=== PATIENT | male | born 1940 | race Caucasian/White ===

== ENCOUNTER 2021-06-22 08:27 | Outpatient (CLI) | payer MEDICARE, SELFPAY ==
[2021-06-22 09:07] LABS: Basophils Percent Auto 0.4 % (0.2-1.2); Eosinophils Absolute Auto 0.4 K/mm3 (0-0.3); Eosinophils Percent Auto 7.3 % (0-4.4); Hemoglobin 12.2 g/dL (14.0-18.0); Immature Granulocyte Absolute 0.01 K/mm3 (0.00-0.031); Immature Granulocyte Percent A 0.2 % (0-0.5); Lymphocytes Absolute Auto 1.38 K/mm3 (0.9-3.2); Lymphocytes Percent Auto 27.9 % (18.3-44.2); Mean Corpuscular Hemoglobin 31.4 pg (26-34); Mean Corpuscular Volume 95.4 fl (80-100); Mean Platelet Volume 10.3 fl (7.4-10.4); Monocytes Absolute Auto 0.4 K/mm3 (0.1-0.6); Monocytes Percent Auto 7.9 % (2.6-8.5); Neutrophils Absolute Auto 2.8 K/mm3 (1.3-6.7); Neutrophils Percent Auto 56.3 % (45.5-73.1); Platelet Count Result 180 k/mm3 (150-375); Red Blood Count 3.88 M/mm3 (4.6-6.20); Red Cell Distribution Width 13.7 % (11.5-14.5)
[2021-06-22 09:16] LABS: Alanine Aminotransferase 18 U/L (6-50); Albumin Level 4.1 g/dL (3.5-5.1); Alkaline Phosphatase 49 U/L (38-126); Anion Gap 6 mmol/L (8-16); Aspartate Amino Transferase 32 U/L (17-59); Bilirubin,Total 0.8 mg/dL (0.2-1.3); Blood Urea Nitrogen 20 mg/dL (9-20); Calcium 8.8 mg/dL (8.4-10.2); Carbon Dioxide 26 mmol/L (22-30); Chloride 104 mmol/L (98-107); Cholesterol 119 mg/dL (0-200); Estimated Glomerular Filt Rate 58; Glucose 128 mg/dL (65-110); HDL Direct 40 mg/dL; Potassium 4.2 mmol/L (3.4-5.0); Sodium 136 mmol/L (137-145); Triglycerides 57 mg/dL (<150)
[2021-06-22 09:28] LABS: LDL Cholesterol Direct 53 mg/dL
[2021-06-22 09:55] LABS: Hemoglobin A1C 6.1 % (<5.7)
[2021-06-22 10:06] LABS: Creatinine Urine 131.1 mg/dL
[2021-06-22 10:17] LABS: Vitamin B12 > 1000.0 pg/mL (239-931)
[2021-06-22 10:48] LABS: Iron 71 ug/dL (49-181)
[2021-06-22 10:57] LABS: Percent Iron Saturation 24 % (20-50)
[2021-06-22 12:37] LABS: MALB Creatinine Ratio < 4.6 mg/g (0-30); Microalbumin Urine Random < 6.0 mg/L (0-16.7)
== END 2021-06-22 08:28 | disposition home or self-care (01) ==
LOC: ANHLAB 08:31
PROVIDERS: PCP Family Medicine; Visit Provider Family Medicine
DX: I10 Essential (primary) hypertension (principal); E11.9 Type 2 diabetes mellitus without complications; D50.9 Iron deficiency anemia, unspecified; E78.2 Mixed hyperlipidemia; Z13.220 Encounter for screening for lipoid disorders
CPT/HCPCS: 36415; 80048; 80061; 80076; 82043; 82607; 83036; 83540; 83550; 84443; 85025

== ENCOUNTER 2022-06-30 08:38 | Outpatient (CLI) | payer MEDICARE, SELFPAY ==
[2022-06-30 09:15] LABS: Hematocrit 38.9 % (42.0-52.0); Hemoglobin 13.1 g/dL (14.0-18.0); Mean Corpuscular HGB Conc 33.7 g/dl (32-36); Mean Corpuscular Hemoglobin 31.6 pg (26-34); Mean Corpuscular Volume 93.7 fl (80-100); Platelet Count Result 200 k/mm3 (150-375); Red Blood Count 4.15 M/mm3 (4.6-6.20); Red Cell Distribution Width 13.4 % (11.5-14.5); White Blood Count 8.5 K/mm3 (4.5-10.0)
[2022-06-30 09:36] LABS: Alanine Aminotransferase 24 U/L (6-50); Albumin Level 4.5 g/dL (3.5-5.1); Alkaline Phosphatase 55 U/L (38-126); Anion Gap 8 mmol/L (8-16); Aspartate Amino Transferase 33 U/L (17-59); Bilirubin,Total 1.7 mg/dL (0.2-1.3); Blood Urea Nitrogen 20 mg/dL (9-20); Calcium 9.1 mg/dL (8.4-10.2); Carbon Dioxide 29 mmol/L (22-30); Chloride 99 mmol/L (98-107); Cholesterol 127 mg/dL (0-200); Estimated Glomerular Filt Rate > 60; Glucose 129 mg/dL (65-110); HDL Direct 36 mg/dL; Potassium 4.5 mmol/L (3.4-5.0); Sodium 136 mmol/L (137-145); Triglycerides 76 mg/dL (<150)
[2022-06-30 09:47] LABS: LDL Cholesterol Direct 67 mg/dL
[2022-06-30 10:08] LABS: MALB Creatinine Ratio < 8.0 mg/g (0-30); Microalbumin Urine Random < 6.0 mg/L (0-16.7)
== END 2022-06-30 08:39 | disposition home or self-care (01) ==
LOC: ANHLAB 08:42
PROVIDERS: PCP Family Medicine; Visit Provider Nurse Practitioner Family
DX: D50.9 Iron deficiency anemia, unspecified (principal); E78.2 Mixed hyperlipidemia; I10 Essential (primary) hypertension; Z13.29 Encounter for screening for other suspected endocrine disorder; Z12.5 Encounter for screening for malignant neoplasm of prostate; E11.9 Type 2 diabetes mellitus without complications
CPT/HCPCS: 36415; 80053; 80061; 82043; 84153; 84443; 85027; G0103

== ENCOUNTER 2022-07-13 14:35 | Outpatient (CLI) | payer MEDICARE, SELFPAY ==
[2022-07-13 14:52] LABS: Hematocrit 38.6 % (42.0-52.0); Hemoglobin 12.6 g/dL (14.0-18.0); Mean Corpuscular HGB Conc 32.6 g/dl (32-36); Mean Corpuscular Hemoglobin 31.4 pg (26-34); Mean Corpuscular Volume 96.3 fl (80-100); Mean Platelet Volume 9.6 fl (7.4-10.4); Platelet Count Result 258 k/mm3 (150-375); Red Blood Count 4.01 M/mm3 (4.6-6.20); Red Cell Distribution Width 13.3 % (11.5-14.5); White Blood Count 8.3 K/mm3 (4.5-10.0)
[2022-07-13 15:05] LABS: Alanine Aminotransferase 24 U/L (6-50); Albumin Level 4.2 g/dL (3.5-5.1); Alkaline Phosphatase 47 U/L (38-126); Anion Gap 6 mmol/L (8-16); Aspartate Amino Transferase 30 U/L (17-59); Bilirubin,Total 0.5 mg/dL (0.2-1.3); Blood Urea Nitrogen 27 mg/dL (9-20); Calcium 9.2 mg/dL (8.4-10.2); Carbon Dioxide 30 mmol/L (22-30); Chloride 103 mmol/L (98-107); Estimated Glomerular Filt Rate > 60; Glucose 147 mg/dL (65-110); Potassium 5.1 mmol/L (3.4-5.0); Sodium 139 mmol/L (137-145)
== END 2022-07-13 14:36 | disposition home or self-care (01) ==
LOC: ANHLAB 14:37
PROVIDERS: PCP Family Medicine; Visit Provider Nurse Practitioner Family
DX: E87.1 Hypo-osmolality and hyponatremia (principal); R17 Unspecified jaundice; D64.9 Anemia, unspecified
CPT/HCPCS: 36415; 80053; 85027

== ENCOUNTER 2022-07-14 06:00 | Observation (INO) | payer MEDICARE, SELFPAY ==
[2022-07-14] VITALS (8 sets, daily range): BP systolic 148–162; BP diastolic 62–98; PULSE 67–87; RESP 14–18; TEMP 36.1–36.4; O2SAT 95–100; BMI 31.6
--- NOTE | ~2022-07-14 | CT_ITS ---
EXAMINATION: CT abdomen pelvis wo con DATE: 07/14/2022 09:02 INDICATION: One week of worsening right flank pain TECHNIQUE: Computed tomography (CT) of the abdomen and pelvis was performed without intravenous contr ast. Automated exposure control and iterative reconstruction technique were employed. The dose-length product was 1196.37 mGy-cm. COMPARISON: 03/02/2006 FINDINGS: Mild discoid atelectasis in the right middle and left lower lobes. Heart size is normal. Atherosclero tic coronary artery calcification and aortic valve calcification. No pericardial or pleural effusion. A few small calcified gallstones along the dependent wall of the gallbladder which is without eviden t wall thickening or pericholecystic inflammatory stranding to suggest acute cholecystitis. There are also a couple small calcified gallstones either within the cystic duct or common bile duct. There is suggestion of some associated intrahepatic biliary ductal dilation. Pancreas, spleen, bilateral adre nal glands and kidneys are normal. No urolithiasis or hydronephrosis. There are some nonspecific hazi ness to the fat at the root of the mesentery. There is bulky retroperitoneal lymphadenopathy which is below the level of the takeoff of the superior mesenteric artery forms a confluent mass measuring pr oximally 10.9 x 6.4 cm surrounding the aorta and inferior vena cava which is most concerning for lymp lucho with differential including other metastatic disease of unknown primary. There is an enlarged pe riportal lymph node measuring 3.4 x 1.9 cm. Additional suspicious mesenteric and gastrohepatic lympha denopathy along with haziness to the surrounding mesenteric fat. Postoperative change of prior umbili sharita hernia repair. Small fat-containing left inguinal hernia. Penile prosthesis with catheter extendi ng along the right inguinal canal to a reservoir in the anterior right pelvis. Bladder is normal. Pro statomegaly. There is moderate colonic diverticulosis with a sigmoid predominance. There is no adjac ent inflammatory change to suggest diverticulitis. Small bowel and appendix are normal. No pathologi dimitri enlarged lymphadenopathy in the pelvis. No free intraperitoneal gas or fluid. Lumbar levoscolio sis with severe spondylosis. IMPRESSION: 1. Abdominal lymphadenopathy including bulky retroperitoneal lymphadenopathy forming approximately 10 .9 x 6.4 similar confluent mass surrounding the abdominal aorta and inferior vena cava which is most concerning for lymphoma. Differential would include less likely other metastatic disease. Consider CT -guided percutaneous biopsy. 2. Cholelithiasis without evidence of acute cholecystitis. There are however a couple gallstones-abdo men the cystic duct or more likely in the common bile duct with suggestion of some mild intrahepatic biliary ductal dilation. Correlate with liver function tests and consider MRCP for further evaluation . 3. Diverticulosis. 4. Prostatomegaly. Reviewed, dictated and finalized at location B. IMPRESSION: 1. Abdominal lymphadenopathy including bulky retroperitoneal lymphadenopathy fo rming approximately 10.9 x 6.4 similar confluent mass surrounding the abdominal aorta and inferior vena cava which is most concerning for lymphoma. Differenti al would include less likely other metastatic disease. Consider CT-guided percu taneous biopsy. 2. Cholelithiasis without evidence of acute cholecystitis. There are however a couple gallstones-abdomen the cystic duct or more likely in the common bile meño t with suggestion of some mild intrahepatic biliary ductal dilation. Correlate with liver function tests and consider MRCP for further evaluation. 3. Diverticulosis. 4. Prostatomegaly.
--- NOTE | ~2022-07-14 | CT_ITS ---
EXAMINATION: CT biopsy abdomen percutaneous DATE: 07/14/2022 14:07 INDICATION: Abdominal lymphadenopathy. TECHNIQUE: The procedure including the risks, benefits, and alternatives was discussed with the patie nt. Risks discussed included bleeding and infection. The patient verbalized understanding of the risk s and agreed to proceed. The patient was placed prone. The skin overlying the retroperitoneum was pre pped and draped in usual sterile fashion. Anesthetic was administered with 1% lidocaine subcutaneous ly. A 16 gauge outer needle was advanced under CT guidance to the aortocaval lymphadenopathy. An 18 gauge core biopsy needle was then used to obtain 5 core biopsy specimens. The mA was adjusted accordi ng to patient size. Iterative reconstruction technique was employed. The dose-length product was 253. 99 mGy-cm. The needle was removed and the entry site was cleaned and dressed. There were no immediat e complications. FINDINGS: CT images demonstrate the outer needle tip adjacent to the enlarged aortocaval lymphadenopa thy.. IMPRESSION: 1. CT-guided core needle biopsy of aortocaval lymphadenopathy. Reviewed, dictated and finalized at location A.
--- NOTE | 2022-07-14 07:04 | PC.NURSE ---
Nurse report given to Mesfin PHAN
[2022-07-14] MEDS: ORPHENADRINE CITRATE 100 MG TABLET.ER PO (07:56)
[2022-07-14] MEDS: KETOROLAC 30 MG/ML VIAL (*BKC) 15 MG IM (07:59)
[2022-07-14 08:18] LABS: Basophils Percent Auto 0.2 % (0.2-1.2); Eosinophils Absolute Auto 0.3 K/mm3 (0-0.3); Eosinophils Percent Auto 3.1 % (0-4.4); Hematocrit 39.3 % (42.0-52.0); Hemoglobin 12.9 g/dL (14.0-18.0); Immature Granulocyte Absolute 0.03 K/mm3 (0.00-0.031); Immature Granulocyte Percent A 0.4 % (0-0.5); Lymphocytes Absolute Auto 1.66 K/mm3 (0.9-3.2); Lymphocytes Percent Auto 19.6 % (18.3-44.2); Mean Corpuscular HGB Conc 32.8 g/dl (32-36); Mean Corpuscular Hemoglobin 31.7 pg (26-34); Mean Corpuscular Volume 96.6 fl (80-100); Mean Platelet Volume 9.7 fl (7.4-10.4); Monocytes Absolute Auto 0.5 K/mm3 (0.1-0.6); Neutrophils Percent Auto 70.7 % (45.5-73.1); Platelet Count Result 243 k/mm3 (150-375); Red Blood Count 4.07 M/mm3 (4.6-6.20); Red Cell Distribution Width 13.4 % (11.5-14.5); White Blood Count 8.5 K/mm3 (4.5-10.0)
[2022-07-14 08:22] LABS: Appearance Urine Clear (Clear); Bilirubin Urine Negative (Negative); Blood Urine Negative (Negative); Color Urine Yellow (Yellow); Glucose Urine UA Negative (Negative); Ketones Urine Negative (Negative); Leukocyte Esterase Ur Negative LEU/UL (Negative); Nitrate Urine Negative (Negative); Protein Urine Negative (Negative); Specific Grav Ur 1.013 (1.001-1.035); Urobilinogen Urine 0.2 mg/dL (<2.0); pH Urine 5.5 (5.0-9.0)
[2022-07-14 08:25] LABS: Alanine Aminotransferase 23 U/L (6-50); Albumin Level 4.4 g/dL (3.5-5.1); Alkaline Phosphatase 47 U/L (38-126); Anion Gap 4 mmol/L (8-16); Aspartate Amino Transferase 28 U/L (17-59); Bilirubin,Total 0.5 mg/dL (0.2-1.3); Blood Urea Nitrogen 21 mg/dL (9-20); Calcium 9.2 mg/dL (8.4-10.2); Carbon Dioxide 32 mmol/L (22-30); Chloride 102 mmol/L (98-107); Estimated CRCL calculation 45 ml/min; Estimated Glomerular Filt Rate > 60; Glucose 126 mg/dL (65-110); Potassium 5.8 mmol/L (3.4-5.0); Sodium 138 mmol/L (137-145)
[2022-07-14 08:32] LABS: Add Urine Microscopic? NO
--- NOTE | 2022-07-14 10:30 | ED.GENADULT ---
HPI - General Adult General Chief complaint: Back Pain/Injury Stated complaint: R flank pain Time Seen by Provider: 07/14/22 07:10 History of Present Illness HPI narrative: Patient 82-year-old gentleman who presents the emergency department with chief complaint of right flank pain. Patient states that for couple days has noticed he had a discomfort feeling just lateral to his spine on the right side. The patient states that the pain is worse with movement and improved with rest patient reports no trauma patient reports no prior neoplastic history patient denies bowel or bladder symptoms Related Data Home Medications Medication Instructions Recorded Confirmed aspirin 81 mg capsule 81 mg PO DAILY 06/19/21 07/14/22 cholecalciferol (vitamin D3) 125 125 mcg PO DAILY 06/19/21 07/14/22 mcg (5,000 unit) capsule cyanocobalamin (vitamin B-12) 5,000 mcg PO DAILY 06/19/21 07/14/22 5,000 mcg capsule diphenhydramine HCl 25 mg capsule 25 mg PO QHS PRN Sleep Aid 06/19/21 07/14/22 (Allergy (diphenhydramine)) ferrous sulfate 325 mg (65 mg 325 mg PO DAILY 06/19/21 07/14/22 iron) tablet (Feosol) glucosamine sulfate 1,000 mg 1,000 mg PO DAILY 06/19/21 07/14/22 capsule melatonin 10 mg capsule 10 mg PO QHS 06/19/21 07/14/22 Allergies Allergy/AdvReac Type Severity Reaction Status Date / Time No Known Allergies Allergy Mild Verified 06/21/22 10:14 Review of Systems Review of Systems: A 10 system review of systems was completed on the patient and is negative except for what is stated in the HPI. Nursing and ancillary documentation was reviewed. [facility] Past Medical History Medical History Back spasm BMI 28.0-28.9,adult BMI 31.0-31.9,adult Coronary artery disease Diabetes History of myocardial infarction Hyperlipemia, mixed Hypertension Iron deficiency anemia Partial nontraumatic amputation of foot Rosacea Surgical History Surgical History History of back surgery History of coronary artery stent placement History of knee surgery History of penile implant Family History Family History Father Stomach ulcer Mother Acute myocardial infarction Heart disease Pacemaker Sibling , alzheimer's No problems noted. 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 HEAD: Normocephalic, atraumatic. EYES: PERRLA and EOMI. ENT: Nares clear, no rhinorrhea or epistaxis. Mucous membranes moist. NECK: Supple. CHEST: Clear to auscultation. No respiratory distress. HEART: Regular rate and rhythm. No murmur heard. Normal peripheral pulses. ABDOMEN: Soft, nontender, nondistended, normal active bowel sounds. EXTREMITIES: Normal range of motion. No edema. SKIN: Warm, dry, no rash. NEURO: No focal deficits. Alert and oriented x3. PSYCH: Normal mood and affect. Course Vital Signs Vital signs: Vital Signs Temperature 36.4 C 07/14/22 06:02 Pulse Rate 78
--- NOTE | 2022-07-14 11:20 | PC.NURSE ---
States he feels like he has been dealing with an infection in his sinuses. States recently while bending over, he will have yellow mucus run down his right nostril.
--- NOTE | 2022-07-14 12:29 | PC.NURSE ---
Lab called asking for a PT/INR for pt's biopsy. RN completes the order.
[2022-07-14 12:48] LABS: INR 1.1; Prothrombin Time 14.5 Seconds (11.1-14.7)
[2022-07-14] MEDS: SODIUM CHLORIDE 0.9% IV 1,000 ML 125 ML IV CONT (13:02)
--- NOTE | 2022-07-14 13:41 | PM.IMHP ---
H&P: HPI History of Present Illness Date/Time: 07/14/22 13:41 Chief Complaint: Low back pain Narrative: Date of service: 07/14/2022 Rex Kaplan is an 82-year-old male with a history of CAD, type 2 diabetes mellitus, hypertension, iron deficiency anemia who presented to the emergency department on 07/14/2022 with complaints of low back pain. Patient states that he has had some right-sided low back pain for about a week, worsened over the past couple of days and last night his pain was so severe that he could not get comfortable and was not able to sleep at all. States the pain does not radiate anywhere. Denies any pain in his buttocks or lower extremities. 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 Denies saddle anesthesia or loss of bowel or bladder control. The pain is worse when he changes positions, he is having trouble standing up. He is typically very active. On presentation to the ED, his vital signs were stable, he was afebrile, CBC unremarkable, potassium 5.8, improved to 5.0 on repeat, urinalysis without blood or other findings concerning for infection, and CT of the abdomen/pelvis showed abdominal lymphadenopathy including bulky retroperitoneal lymphadenopathy forming confluent mass surrounding abdominal aorta and IVC, most concerning for lymphoma, less likely metastatic disease, as well as cholelithiasis without evidence of acute cholecystitis. At the time of my evaluation, the patient states that he is doing well. His pain is unchanged, he is still able to ambulate independently. He denies any unintentional weight loss, in fact states that he is careful to keep himself within a healthy weight range. Denies abdominal pain, nausea, vomiting, fevers, chills, night sweats. Does complain of occasional nasal rhinorrhea and congestion. No shortness of breath. Review of Systems Review of Systems: All systems reviewed & are unremarkable except as noted in HPI and below PMFSH Past Medical History Medical History (Updated 07/14/22 @ 14:01 by Varsha Birch PA-C) Back spasm BMI 28.0-28.9,adult BMI 31.0-31.9,adult Coronary artery disease Diabetes History of myocardial infarction Hyperlipemia, mixed Hypertension Iron deficiency anemia Partial nontraumatic amputation of foot Rosacea Surgical History Surgical History (Updated 07/14/22 @ 14:01 by Varsha Birch PA-C) History of back surgery L5 History of coronary artery stent placement History of knee surgery History of penile implant Family History Family History Father Stomach ulcer Mother Acute myocardial infarction Heart disease Pacemaker Sibling , alzheimer's No problems noted. Sibling Alcoholism Tobacco abuse Social History Social History (Updated 07/14/22 @ 14:12 by Varsha Birch PA-C) Social History: Lives at home with his girlfriend. He is independent in his daily activities. His PCP is Dr. Solano. He is a full code. Smoking packs per day: 1 Smoking cigarettes per day: 20.0 Years smoked: 2 Smoking pack-years: 2.00 Smoking status: Former smoker (1 pack year) Second hand tobacco smoke exposure: No Alcohol intake: current Alcohol use details: 9 beers per week Substance use: never Substance use type: does not use Lack of Transportation: No Lack of Food: Never True Current Housing: I Have Housing Concerned About Future Housing: No Difficulty Paying Gas/Electric Bills: No Difficulty Paying for Meds: No Currently Unemployed: No Education: Trade/Vocational Certificate Difficulty w/ Childcare or Family Care: No Living arrangements: with family Occupation/Education: retired 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
--- NOTE | 2022-07-14 14:08 | PC.NURSE ---
Ct called to inform that pt will require to lay flat for 4 hours and to report any pain to provider.
--- NOTE | 2022-07-14 14:41 | ADMGEN ---
This patient, Rex Kaplan, was admitted to 3 Med Surg Room 302-01. Patient/family oriented to hospital policies and general routines including ID bracelet, bed and alarms, visiting hours, pain management, procedures, bathroom and other care routines, personal items, smoking policy, room service/diet, and visiting hours. Information on how to activate the Rapid Response Team has been discussed. Patient/Family are encouraged to report perceived risks to care and to ask questions if they do not understand what they are told or what they should do.
[2022-07-14 15:20] LABS: Lactate Dehydrogenase 184 U/L (120-246)
[2022-07-14 15:58] LABS: Glucose Point of Care 107 mg/dl (65-105)
[2022-07-14] MEDS: MELATONIN 5 MG TABLET 10 MG PO (21:12)
[2022-07-14] MEDS: diphenhydrAMINE HCl CAP 25 MG CAPSULE PO (21:13)
[2022-07-14 21:34] LABS: Glucose Point of Care 138 mg/dl (65-105)
[2022-07-15] MEDS: ACETAMINOPHEN 325 MG TABLET 650 MG PO (01:43)
[2022-07-15 06:00] VITALS: BP 151/64; PULSE 80; RESP 16; TEMP 36.1; O2SAT 97
[2022-07-15 06:39] LABS: Basophils Percent Auto 0.4 % (0.2-1.2); Eosinophils Absolute Auto 0.2 K/mm3 (0-0.3); Eosinophils Percent Auto 3.1 % (0-4.4); Hematocrit 35.7 % (42.0-52.0); Hemoglobin 11.9 g/dL (14.0-18.0); Immature Granulocyte Absolute 0.03 K/mm3 (0.00-0.031); Immature Granulocyte Percent A 0.4 % (0-0.5); Lymphocytes Absolute Auto 1.47 K/mm3 (0.9-3.2); Lymphocytes Percent Auto 19.1 % (18.3-44.2); Mean Corpuscular HGB Conc 33.3 g/dl (32-36); Mean Corpuscular Hemoglobin 31.6 pg (26-34); Mean Corpuscular Volume 94.9 fl (80-100); Mean Platelet Volume 10.1 fl (7.4-10.4); Monocytes Absolute Auto 0.5 K/mm3 (0.1-0.6); Monocytes Percent Auto 6.1 % (2.6-8.5); Neutrophils Absolute Auto 5.5 K/mm3 (1.3-6.7); Neutrophils Percent Auto 70.9 % (45.5-73.1); Platelet Count Result 223 k/mm3 (150-375); Red Blood Count 3.76 M/mm3 (4.6-6.20); Red Cell Distribution Width 13.5 % (11.5-14.5); White Blood Count 7.7 K/mm3 (4.5-10.0)
[2022-07-15 06:58] LABS: Alanine Aminotransferase 20 U/L (6-50); Albumin Level 3.8 g/dL (3.5-5.1); Alkaline Phosphatase 49 U/L (38-126); Anion Gap 5 mmol/L (8-16); Aspartate Amino Transferase 28 U/L (17-59); Bilirubin,Total 0.8 mg/dL (0.2-1.3); Blood Urea Nitrogen 20 mg/dL (9-20); Calcium 8.8 mg/dL (8.4-10.2); Carbon Dioxide 27 mmol/L (22-30); Chloride 103 mmol/L (98-107); Estimated CRCL calculation 52 ml/min; Estimated Glomerular Filt Rate > 60; Glucose 117 mg/dL (65-110); Potassium 4.6 mmol/L (3.4-5.0); Sodium 135 mmol/L (137-145)
[2022-07-15 07:41] LABS: Glucose Point of Care 112 mg/dl (65-105)
[2022-07-15] MEDS: CHOLECALCIFEROL 1,000 UNITS TABLET 5000 UNITS PO (08:22)
[2022-07-15] MEDS: CYANOCOBALAMIN 1,000 MCG TABLET 5000 MCG PO (08:22)
[2022-07-15] MEDS: ASPIRIN 81 MG CHEWABLE TABLET PO (08:22)
[2022-07-15] MEDS: FERROUS SULFATE 324 MG TABLET PO (08:22)
[2022-07-15] MEDS: DOXYCYCLINE HYCLATE 100 MG TABLET PO (08:23)
[2022-07-15] MEDS: ATORVASTATIN 40 MG TABLET PO (08:23)
[2022-07-15 08:25] VITALS: PULSE 59; O2SAT 97
--- NOTE | 2022-07-15 11:00 | P.DS_ITS ---
DS: Admitting Diagnosis Discharge Date 07/15/22 1100 Admitting Diagnosis Lower back pain DS: Discharge Diagnosis Discharge Diagnosis (1) Abdominal lymphadenopathy: Code(s): R59.0 - Localized enlarged lymph nodes Status: Acute Assessment and Plan: CT of abdomen/pelvis showed abdominal lymphadenopathy including bulky retroperitoneal lymphadenopathy forming approximately 10.9 x 6.4 similar consult mass surrounding the abdominal aorta and inferior vena cava which is most concerning for lymphoma with differential including metastatic disease. No personal or family history of any cancer * CT-guided core needle biopsy of aortocaval lymphadenopathy completed, pathology pending * Consult to Oncology for further recommendations * LDH 184 (2) Low back pain: Code(s): M54.50 - Low back pain, unspecified Status: Acute Assessment and Plan: Presented with right-sided lumbar back pain. No red flag back pain symptoms. * Likely secondary to above * No evidence of kidney stones, pyelonephritis, infection * Supportive care. Analgesics available as needed. Ice and heat as needed for discomfort (3) Cholelithiasis: Code(s): K80.20 - Calculus of gallbladder without cholecystitis without obstruction Status: Acute Assessment and Plan: CT of the abdomen/pelvis showed cholelithiasis without evidence of acute cholecystitis also with a couple gallstones possibly in the cystic duct or common bile duct * Patient has no abdominal pain, is tolerating his diet, no acute symptoms * LFTs and total bilirubin within normal limits * No need for further workup at this time. Consider outpatient follow-up with General surgery (4) Hyperkalemia: Code(s): E87.5 - Hyperkalemia Status: Acute Assessment and Plan: Potassium 5.8 on presentation, improved to 5.0 with repeat * Etiology not entirely clear. Renal function is within normal limits * Hold lisinopril * Low-potassium diet * Of note, patient had a potassium of 5.1 on 07/13. I am unclear when he had labs drawn on 07/13 as he has no visits for this date and denies having outpa tient lab work completed Potassium is 4.6 (5) Normocytic anemia: Code(s): D64.9 - Anemia, unspecified Status: Acute Assessment and Plan: Patient with mild anemia, appears consistent with baseline * Trend H&H * 11.9/35.7 (6) Diabetes: Qualifiers: Diabetes mellitus complication status: without complication Diabetes mellitus emt intermediate insulin use: without half-way use Diabetes mellitus type: type 2 Qualified Code(s): E11.9 - Type 2 diabetes mellitus without compli cations Code(s): E11.9 - Type 2 diabetes mellitus without complications Status: Acute Assessment and Plan: Last A1c 6.2. Blood sugars are stable at this time * Patient does not appear to be on home insulin or oral hypoglycemics * Begin Accu-Cheks, sliding scale insulin, and hypoglycemic protocol DS: Summary Hospital Course Hospital Course: Patient is an 82 year old with past medical history of CAD, type 2 diabetes, hypertension, anemia who presented the ED with complaints of lower back pain. Patient did have a CT of the abdomen and pelvis which did show lymphadenopathy and a retroperitoneal lipoma. Biopsy was performed yesterday. Patient states that he is feeling great it is swing dancing in the room. Currently his labs a
--- NOTE | 2022-07-15 11:00 | PM.DS ---
DS: Admitting Diagnosis Discharge Date 07/15/22 1100 Admitting Diagnosis Lower back pain DS: Discharge Diagnosis Discharge Diagnosis (1) Abdominal lymphadenopathy: Code(s): R59.0 - Localized enlarged lymph nodes Status: Acute Assessment and Plan: CT of abdomen/pelvis showed abdominal lymphadenopathy including bulky retroperitoneal lymphadenopathy forming approximately 10.9 x 6.4 similar consult mass surrounding the abdominal aorta and inferior vena cava which is most concerning for lymphoma with differential including metastatic disease. No personal or family history of any cancer CT-guided core needle biopsy of aortocaval lymphadenopathy completed, pathology pending Consult to Oncology for further recommendations LDH 184 (2) Low back pain: Code(s): M54.50 - Low back pain, unspecified Status: Acute Assessment and Plan: Presented with right-sided lumbar back pain. No red flag back pain symptoms. Likely secondary to above No evidence of kidney stones, pyelonephritis, infection Supportive care. Analgesics available as needed. Ice and heat as needed for discomfort (3) Cholelithiasis: Code(s): K80.20 - Calculus of gallbladder without cholecystitis without obstruction Status: Acute Assessment and Plan: CT of the abdomen/pelvis showed cholelithiasis without evidence of acute cholecystitis also with a couple gallstones possibly in the cystic duct or common bile duct Patient has no abdominal pain, is tolerating his diet, no acute symptoms LFTs and total bilirubin within normal limits No need for further workup at this time. Consider outpatient follow-up with General surgery (4) Hyperkalemia: Code(s): E87.5 - Hyperkalemia Status: Acute Assessment and Plan: Potassium 5.8 on presentation, improved to 5.0 with repeat Etiology not entirely clear. Renal function is within normal limits Hold lisinopril Low-potassium diet Of note, patient had a potassium of 5.1 on 07/13. I am unclear when he had labs drawn on 07/13 as he has no visits for this date and denies having outpatient lab work completed Potassium is 4.6 (5) Normocytic anemia: Code(s): D64.9 - Anemia, unspecified Status: Acute Assessment and Plan: Patient with mild anemia, appears consistent with baseline Trend H&H 11.9/35.7 (6) Diabetes: Qualifiers: Diabetes mellitus complication status: without complication Diabetes mellitus half-way insulin use: without buttermaker continuous churn use Diabetes mellitus type: type 2 Qualified Code(s): E11.9 - Type 2 diabetes mellitus without complications Code(s): E11.9 - Type 2 diabetes mellitus without complications Status: Acute Assessment and Plan: Last A1c 6.2. Blood sugars are stable at this time Patient does not appear to be on home insulin or oral hypoglycemics Begin Accu-Cheks, sliding scale insulin, and hypoglycemic protocol DS: Summary Hospital Course Hospital Course: Patient is an 82 year old with past medical history of CAD, type 2 diabetes, hypertension, anemia who presented the ED with complaints of lower back pain. Patient did have a CT of the abdomen and pelvis which did show lymphadenopathy and a retroperitoneal lipoma. Biopsy was performed yesterday. Patient states that he is feeling great it is swing dancing in the room. Currently his labs and vital signs are stable. Patient also states that he wishes to go home. He is eating okay the only complaint he had was a nasal drip which he stated started about this month. He also stated that he got a lot of yellow snot of his left nostril today and feels like he has a sinus infection. I did call Dr. Evangelista's office and talked to the and [employer] who agreed to follow up with him in the office along with following the pathology report and doing a consult our shot if indicated. We will give the raffy
[2022-07-15 11:09] LABS: Glucose Point of Care 159 mg/dl (65-105)
== END 2022-07-15 11:45 | disposition home or self-care (01) ==
LOC: ANHED 12:18 → ANH3MEDSUR 14:35
PROVIDERS: Physician Assistant; Admitting Provider Student in an Organized Health Care Education/Training Program; Emergency Provider Emergency Medicine; PCP Family Medicine; Visit Provider Internal Medicine
DX: R59.0 Localized enlarged lymph nodes (principal); M54.50 Low back pain, unspecified; K80.20 Calculus of gallbladder without cholecystitis without obstruction; E87.5 Hyperkalemia; D64.9 Anemia, unspecified; E11.9 Type 2 diabetes mellitus without complications; K57.90 Diverticulosis of intestine, part unspecified, without perforation or abscess without bleeding; N40.0 Benign prostatic hyperplasia without lower urinary tract symptoms; I25.10 Atherosclerotic heart disease of native coronary artery without angina pectoris; Z95.5 Presence of coronary angioplasty implant and graft; I25.2 Old myocardial infarction; E78.5 Hyperlipidemia, unspecified; I35.8 Other nonrheumatic aortic valve disorders; I10 Essential (primary) hypertension; J98.11 Atelectasis; Z89.439 Acquired absence of unspecified foot; F10.90 Alcohol use, unspecified, uncomplicated; Z87.891 Personal history of nicotine dependence; Z79.82 Long term (current) use of aspirin; Z79.899 Other long term (current) drug therapy
CPT/HCPCS: 36415; 49180; 74176; 77012; 80053; 81003; 82948; 83615; 84132; 85025; 85610; 88108; 88305; 88342; 96372; 99285; A9270; G0378; J1885; J7030; Q9967

== ENCOUNTER 2022-07-29 14:43 | Outpatient (CLI) | payer MEDICARE, SELFPAY ==
[2022-07-29 15:02] LABS: Basophils Percent Auto 0.3 % (0.2-1.2); Eosinophils Absolute Auto 0.3 K/mm3 (0-0.3); Eosinophils Percent Auto 3.7 % (0-4.4); Hematocrit 36.2 % (42.0-52.0); Hemoglobin 12.1 g/dL (14.0-18.0); Immature Granulocyte Absolute 0.02 K/mm3 (0.00-0.031); Immature Granulocyte Percent A 0.3 % (0-0.5); Lymphocytes Absolute Auto 1.49 K/mm3 (0.9-3.2); Lymphocytes Percent Auto 22.1 % (18.3-44.2); Mean Corpuscular HGB Conc 33.4 g/dl (32-36); Mean Corpuscular Hemoglobin 31.4 pg (26-34); Mean Platelet Volume 10.1 fl (7.4-10.4); Monocytes Absolute Auto 0.5 K/mm3 (0.1-0.6); Neutrophils Absolute Auto 4.5 K/mm3 (1.3-6.7); Neutrophils Percent Auto 66.6 % (45.5-73.1); Platelet Count Result 208 k/mm3 (150-375); Red Blood Count 3.85 M/mm3 (4.6-6.20); Red Cell Distribution Width 13.4 % (11.5-14.5); White Blood Count 6.7 K/mm3 (4.5-10.0)
[2022-07-29 21:49] LABS: Alanine Aminotransferase 22 U/L (6-50); Albumin Level 4.2 g/dL (3.5-5.1); Alkaline Phosphatase 45 U/L (38-126); Anion Gap 8 mmol/L (8-16); Aspartate Amino Transferase 30 U/L (17-59); Bilirubin,Total 0.6 mg/dL (0.2-1.3); Blood Urea Nitrogen 26 mg/dL (9-20); Calcium 9.1 mg/dL (8.4-10.2); Carbon Dioxide 26 mmol/L (22-30); Chloride 103 mmol/L (98-107); Estimated Glomerular Filt Rate > 60; Glucose 134 mg/dL (65-110); Lactate Dehydrogenase 193 U/L (120-246); Potassium 4.8 mmol/L (3.4-5.0); Sodium 137 mmol/L (137-145)
[2022-07-29 22:24] LABS: Prostate Specific Antigen 2.7 ng/mL (< OR = 4.0)
== END 2022-07-29 14:44 | disposition home or self-care (01) ==
PROVIDERS: PCP Family Medicine; Visit Provider Internal Medicine Hematology & Oncology
DX: C85.93 Non-Hodgkin lymphoma, unspecified, intra-abdominal lymph nodes (principal); Z12.5 Encounter for screening for malignant neoplasm of prostate
CPT/HCPCS: 36415; 80053; 83615; 84153; 85025; G0103

== ENCOUNTER 2022-08-02 12:02 | Outpatient (CLI) | payer MEDICARE, SELFPAY ==
[2022-08-02 12:26] LABS: Hematocrit 37.9 % (42.0-52.0); Hemoglobin 12.4 g/dL (14.0-18.0); Mean Corpuscular HGB Conc 32.7 g/dl (32-36); Mean Corpuscular Hemoglobin 30.9 pg (26-34); Mean Corpuscular Volume 94.5 fl (80-100); Mean Platelet Volume 10.2 fl (7.4-10.4); Platelet Count Result 212 k/mm3 (150-375); Red Blood Count 4.01 M/mm3 (4.6-6.20); Red Cell Distribution Width 13.5 % (11.5-14.5)
[2022-08-02 12:36] LABS: Anion Gap 8 mmol/L (8-16); Blood Urea Nitrogen 24 mg/dL (9-20); Carbon Dioxide 27 mmol/L (22-30); Chloride 102 mmol/L (98-107); Estimated Glomerular Filt Rate > 60; Glucose 113 mg/dL (65-110); Potassium 4.6 mmol/L (3.4-5.0); Sodium 137 mmol/L (137-145)
[2022-08-02 12:45] LABS: Iron 86 ug/dL (49-181)
== END 2022-08-02 12:03 | disposition home or self-care (01) ==
LOC: ANHLAB 12:03
PROVIDERS: PCP Family Medicine; Visit Provider Nurse Practitioner Family
DX: E87.5 Hyperkalemia (principal); D64.9 Anemia, unspecified
CPT/HCPCS: 36415; 80048; 83540; 85027

== ENCOUNTER 2022-08-10 09:02 | Outpatient (CLI) | payer MEDICARE, SELFPAY ==
--- NOTE | ~2022-08-10 | PE_ITS ---
EXAMINATION: PET skull to mid thigh DATE: 08/10/2022 11:34 INDICATION: Non-Hodgkin lymphoma TECHNIQUE: Blood glucose level was 133 mg/dL. 9.694 mCi of 18-fluorodeoxyglucose (18-FDG) was adminis tered i.v. Low dose computed tomography (CT) images were acquired from the base of the brain to the p roximal thighs for attenuation correction and anatomic localization. Positron emission tomography (PE T) images were acquired in the same distribution beginning 62 minutes after injection. The dose-lengt h product (DLP) was 546.76 mGy-cm. COMPARISON: 07/14/2022 FINDINGS: Head/neck: No abnormal FDG uptake is identified. There is complete opacification of the left maxillar y sinus. Chest: There are normal sized bilateral axillary lymph nodes which demonstrate abnormal FDG uptake. T he largest measures 7 mm in short axis in the left axilla with SUV max of 4.1. The lungs are free of focal airspace opacities. There is mild atelectasis. No pleural effusion or pneumothorax. Cardiomegal y is noted. There is no mediastinal or hilar lymphadenopathy. Abdomen/pelvis/proximal thighs: There is an approximately 10.0 x 6.5 cm ill-defined retroperitoneal s oft tissue attenuation mass surrounding the aorta with abnormal FDG uptake and SUV max of 10.7, consi stent with biopsy-proven lymphoma. There is an 11 mm left external iliac chain lymph node with abnorm al FDG uptake. Subcentimeter right external iliac chain lymph nodes demonstrate mild FDG uptake. Also noted are mildly enlarged lymph nodes of the small bowel mesentery with abnormal FDG uptake. A reser voir for a penile implant is present in the right pelvis. Physiologic FDG activity is present in the bowel and urinary tract. The liver, spleen, pancreas, gallbladder, and adrenal glands are unremarkabl e. The kidneys are normal. No free intraperitoneal gas or evidence of bowel obstruction. Musculoskeletal: No abnormal FDG uptake is identified. There is severe lumbar spondylosis. IMPRESSION: 1. Retroperitoneal, mesenteric, and pelvic lymphadenopathy and bilateral axillary lymph nodes with ab normal FDG uptake, consistent with biopsy-proven lymphoma. Reviewed, dictated and finalized at location L. IMPRESSION: 1. Retroperitoneal, mesenteric, and pelvic lymphadenopathy and bilateral axilla ry lymph nodes with abnormal FDG uptake, consistent with biopsy-proven lymphoma .
[2022-08-10 09:41] LABS: Glucose Point of Care 133 mg/dl (65-105)
== END 2022-08-10 09:03 | disposition home or self-care (01) ==
PROVIDERS: PCP Family Medicine; Visit Provider Internal Medicine Hematology & Oncology
DX: C85.93 Non-Hodgkin lymphoma, unspecified, intra-abdominal lymph nodes (principal)
CPT/HCPCS: 78815; A9552

== ENCOUNTER 2022-08-18 14:01 | Outpatient (CLI) | payer MEDICARE, SELFPAY | END 2022-08-18 14:02 | disposition home or self-care (01) | LOC: ANHLAB 14:02 | PROVIDERS: PCP Family Medicine; Visit Provider Internal Medicine Hematology & Oncology | DX: C85.93 Non-Hodgkin lymphoma, unspecified, intra-abdominal lymph nodes (principal) | CPT/HCPCS: 88184 ==

== ENCOUNTER 2022-10-04 10:19 | Outpatient (CLI) | payer MEDICARE, SELFPAY ==
[2022-10-04 10:43] LABS: Basophils Percent Auto 0.3 % (0.2-1.2); Eosinophils Absolute Auto 0.3 K/mm3 (0-0.3); Eosinophils Percent Auto 3.5 % (0-4.4); Hematocrit 39.9 % (42.0-52.0); Hemoglobin 13.2 g/dL (14.0-18.0); Immature Granulocyte Absolute 0.01 K/mm3 (0.00-0.031); Immature Granulocyte Percent A 0.1 % (0-0.5); Lymphocytes Absolute Auto 1.71 K/mm3 (0.9-3.2); Lymphocytes Percent Auto 22.4 % (18.3-44.2); Mean Corpuscular HGB Conc 33.1 g/dl (32-36); Mean Corpuscular Hemoglobin 31.3 pg (26-34); Mean Corpuscular Volume 94.5 fl (80-100); Mean Platelet Volume 10.1 fl (7.4-10.4); Monocytes Absolute Auto 0.5 K/mm3 (0.1-0.6); Monocytes Percent Auto 6.4 % (2.6-8.5); Neutrophils Absolute Auto 5.1 K/mm3 (1.3-6.7); Neutrophils Percent Auto 67.3 % (45.5-73.1); Platelet Count Result 243 k/mm3 (150-375); Red Blood Count 4.22 M/mm3 (4.6-6.20); Red Cell Distribution Width 13.2 % (11.5-14.5); White Blood Count 7.6 K/mm3 (4.5-10.0)
[2022-10-04 10:55] LABS: Anion Gap 5 mmol/L (8-16); Blood Urea Nitrogen 19 mg/dL (9-20); Calcium 9.8 mg/dL (8.4-10.2); Carbon Dioxide 27 mmol/L (22-30); Chloride 101 mmol/L (98-107); Estimated Glomerular Filt Rate > 60; Glucose 122 mg/dL (65-110); Potassium 4.5 mmol/L (3.4-5.0); Sodium 133 mmol/L (137-145)
== END 2022-10-04 10:20 | disposition home or self-care (01) ==
PROVIDERS: PCP Family Medicine; Visit Provider Physician Assistant Medical
DX: R10.13 Epigastric pain (principal); R41.82 Altered mental status, unspecified
CPT/HCPCS: 36415; 80048; 85025

== ENCOUNTER 2022-10-08 08:02 | Outpatient (CLI) | payer MEDICARE, SELFPAY ==
--- NOTE | ~2022-10-08 | CT_ITS ---
EXAMINATION: CT chest abdomen pelvis w con DATE: 10/08/2022 08:30 INDICATION: Non-Hodgkin's lymphoma TECHNIQUE: Computed tomography (CT) of the abdomen and pelvis was performed with 100 cc Omnipaque 350 intravenous contrast. The dose-length product was 954.45 mGy-cm. Automated exposure control and iter ative reconstruction technique were employed. COMPARISON: PET scan dated 08/10/2022. FINDINGS: Heart size is normal. No significant pleural or pericardial effusion. There is a penile pro sthetic device with a reservoir in the right pelvis. Heart size is normal. There is bilateral axillar y, retroperitoneal, bilateral axillary lymphadenopathy, consistent with known lymphoma. No significan t pleural or pericardial effusion. No endobronchial lesions. There is dependent atelectasis. There is a 2 mm right upper lobe nodule, likely benign. Calcified granuloma right lower lobe. No focal airspa ce consolidation. There are gallstones. The liver, spleen, adrenal glands and kidneys are unremarkable. There is a smal l 1 cm cyst of the pancreatic body. There is atherosclerosis of the aorta without aneurysm. There are severe degenerative changes of the hips. Severe thoracic and lumbar spondylosis. There is scoliosis. IMPRESSION: 1. Extensive axillary, retroperitoneal and mesenteric lymphadenopathy, consistent with known lymphoma . Reviewed, dictated and finalized at location B. IMPRESSION: 1. Extensive axillary, retroperitoneal and mesenteric lymphadenopathy, consiste nt with known lymphoma.
== END 2022-10-08 08:03 | disposition home or self-care (01) ==
PROVIDERS: PCP Family Medicine; Visit Provider Internal Medicine Hematology & Oncology
DX: C85.93 Non-Hodgkin lymphoma, unspecified, intra-abdominal lymph nodes (principal)
CPT/HCPCS: 71260; 74177; Q9967

== ENCOUNTER 2022-10-20 09:23 | Outpatient (CLI) | payer MEDICARE, SELFPAY ==
--- NOTE | ~2022-10-20 | US_ITS ---
EXAMINATION: US abdomen complete DATE: 10/20/2022 11:05 INDICATION: Epigastric pain TECHNIQUE: Multiple grayscale and Doppler ultrasound images of the abdomen were obtained. COMPARISON: 10/09/2019 FINDINGS: There is a 1.8 cm cyst of the body of the pancreas. The liver is normal with normal echogen icity and echotexture. No surface nodularity. Normal hepatopetal flow in the main portal vein. Stones are present in the gallbladder. No gallbladder wall thickening or pericholecystic fluid. The normal common bile duct measures 5 mm. There was no sonographic Rothman sign. The visualized portions of the aorta and inferior vena cava are normal. The spleen is normal in appearance and measures 10.1 cm. The right kidney measures 10.1 x 5.8 x 4.6 c m. The left kidney measures 10.6 x 5.0 x 4.6 cm. The kidneys demonstrate normal parenchymal echogenic ity. There is no hydronephrosis. IMPRESSION: 1. Cholelithiasis without evidence of cholecystitis. 2. 1.8 cm cyst of the pancreatic body. Follow-up pancreas protocol CT or MRI in two years is recommen ded. Reviewed, dictated and finalized at location F. IMPRESSION: 1. Cholelithiasis without evidence of cholecystitis. 2. 1.8 cm cyst of the pancreatic body. Follow-up pancreas protocol CT or MRI in two years is recommended.
== END 2022-10-20 09:24 | disposition home or self-care (01) ==
PROVIDERS: PCP Family Medicine; Visit Provider Physician Assistant Medical
DX: K80.20 Calculus of gallbladder without cholecystitis without obstruction (principal); K86.2 Cyst of pancreas; R41.82 Altered mental status, unspecified
CPT/HCPCS: 76700

== ENCOUNTER 2022-10-26 09:07 | Outpatient (CLI) | payer MEDICARE, SELFPAY ==
--- NOTE | ~2022-10-26 | US_ITS ---
EXAMINATION: US biopsy lymph node DATE: 10/26/2022 10:19 INDICATION: Non-Hodgkin's lymphoma of intra-abdominal lymph nodes. TECHNIQUE: The procedure including the risks, benefits, and alternatives was discussed with the patie nt. Risks discussed included bleeding and infection. The patient understood the risks and agreed to p roceed. The skin overlying the left axilla was prepped and draped in usual sterile fashion. Anesthet ic was administered with 1% lidocaine subcutaneously. An 18 gauge core biopsy needle was then used t o obtain multiple core biopsy specimens under continuous sonographic guidance. The entry site was taco aned and dressed. There were no immediate complications. FINDINGS: Ultrasound images demonstrate the needle in normal-sized left axillary lymph nodes that dem onstrated increased activity on PET/CT. IMPRESSION: 1. Ultrasound-guided core needle biopsy of left axillary lymph nodes. If this biopsy is not positive for malignancy, repeat CT-guided retroperitoneal biopsy would be recommended. Reviewed, dictated and finalized at location A. IMPRESSION: 1. Ultrasound-guided core needle biopsy of left axillary lymph nodes. If this b iopsy is not positive for malignancy, repeat CT-guided retroperitoneal biopsy w ould be recommended.
== END 2022-10-26 09:08 | disposition home or self-care (01) ==
PROVIDERS: PCP Family Medicine; Visit Provider Internal Medicine Hematology & Oncology
DX: C85.93 Non-Hodgkin lymphoma, unspecified, intra-abdominal lymph nodes (principal)
CPT/HCPCS: 38505; 76942; 88108; 88184; 88305; 88341; 88342

== ENCOUNTER → 2022-11-03 09:23 | Outpatient (CLI) | payer MEDICARE, SELFPAY ==
--- NOTE | ~2022-11-03 | CT_ITS ---
CT of the Abdomen and Pelvis: Indication: Pancreatic cyst Technique: 2.5 mm axial scans were obtained through the abdomen and pelvis prior to and following in travenous administration of 100 cc of Omnipaque 350. Dose reduction technique was used on this scan b y utilizing automated exposure control and iterative reconstruction technique. The dose-length produc t (DLP) was 2103.53 mGy-cm. COMPARISON: 10/08/2022 Findings: Scans through the lung bases are unremarkable. The liver, spleen, adrenals and kidneys are within normal limits. Tiny gallstones are present. 9 mm h ypodensity the pancreatic neck is similar to prior exam, without definite enhancement. There are athe rosclerotic calcifications of the aorta. There is extensive, confluent retroperitoneal lymphadenopat hy encasing the aorta. There are additional enlarged central mesenteric lymph nodes, similar to prior exam.. No bowel obstruction or bowel wall thickening. There is no evidence to suggest acute appendicitis. Images through the pelvis were performed. Prostate gland is markedly enlarged. Urinary bladder unrema rkable. Penile implant and reservoir present. Impression: Retroperitoneal and central mesenteric lymphadenopathy, similar to prior exam, consistent with lympho ma. 9 mm hypodensity at the pancreatic neck is similar to prior exam, without definite enhancement. Cholelithiasis. Reviewed, dictated and finalized at [facility]. Impression: Retroperitoneal and central mesenteric lymphadenopathy, similar to prior exam, consistent with lymphoma. 9 mm hypodensity at the pancreatic neck is similar to prior exam, without defin ite enhancement. Cholelithiasis.
[2022-11-03 09:41] LABS: Estimated Glomerular Filt Rate 53
== END ==
PROVIDERS: PCP Physician Assistant Medical; Visit Provider Physician Assistant Medical
DX: K86.2 Cyst of pancreas (principal); R59.0 Localized enlarged lymph nodes; K80.20 Calculus of gallbladder without cholecystitis without obstruction
CPT/HCPCS: 74178; Q9967

== ENCOUNTER 2022-11-16 11:01 | Outpatient (CLI) | payer MEDICARE, SELFPAY ==
[2022-11-16 11:14] LABS: Basophils Percent Auto 0.3 % (0.2-1.2); Eosinophils Absolute Auto 0.3 K/mm3 (0-0.3); Eosinophils Percent Auto 4.7 % (0-4.4); Hematocrit 38.4 % (42.0-52.0); Hemoglobin 12.7 g/dL (14.0-18.0); Immature Granulocyte Absolute 0.02 K/mm3 (0.00-0.031); Immature Granulocyte Percent A 0.3 % (0-0.5); Lymphocytes Absolute Auto 2.27 K/mm3 (0.9-3.2); Lymphocytes Percent Auto 34.1 % (18.3-44.2); Mean Corpuscular HGB Conc 33.1 g/dl (32-36); Mean Corpuscular Hemoglobin 31.3 pg (26-34); Mean Corpuscular Volume 94.6 fl (80-100); Mean Platelet Volume 9.6 fl (7.4-10.4); Monocytes Absolute Auto 0.5 K/mm3 (0.1-0.6); Neutrophils Absolute Auto 3.5 K/mm3 (1.3-6.7); Neutrophils Percent Auto 52.6 % (45.5-73.1); Platelet Count Result 200 k/mm3 (150-375); Red Blood Count 4.06 M/mm3 (4.6-6.20); Red Cell Distribution Width 13.4 % (11.5-14.5); White Blood Count 6.7 K/mm3 (4.5-10.0)
[2022-11-16 11:17] LABS: Blood Urea Nitrogen 27 mg/dL (8-26); Carbon Dioxide 29 mmol/L (22-30); Chloride 98 mmol/L (98-109); Estimated Glomerular Filt Rate 53; Glucose 156 mg/dL (70-105); Ionized Calcium (POC) 1.27 mmol/L (1.11-1.31); Potassium 4.8 mmol/L (3.5-4.9); Sodium 137 mmol/L (138-146)
[2022-11-16 11:58] LABS: Alanine Aminotransferase 22 U/L (6-50); Albumin Level 4.2 g/dL (3.5-5.1); Alkaline Phosphatase 51 U/L (38-126); Anion Gap 7 mmol/L (8-16); Aspartate Amino Transferase 32 U/L (17-59); Bilirubin,Total 0.8 mg/dL (0.2-1.3); Blood Urea Nitrogen 27 mg/dL (9-20); Calcium 9.9 mg/dL (8.4-10.2); Carbon Dioxide 30 mmol/L (22-30); Chloride 98 mmol/L (98-107); Estimated Glomerular Filt Rate 58; Glucose 150 mg/dL (65-110); Lactate Dehydrogenase 197 U/L (120-246); Potassium 4.7 mmol/L (3.4-5.0); Sodium 135 mmol/L (137-145)
== END 2022-11-16 11:02 | disposition home or self-care (01) ==
LOC: ANHLAB 11:04
PROVIDERS: PCP Physician Assistant Medical; Visit Provider Internal Medicine Hematology & Oncology
DX: C85.93 Non-Hodgkin lymphoma, unspecified, intra-abdominal lymph nodes (principal)
CPT/HCPCS: 36415; 80047; 80053; 83615; 85025

== ENCOUNTER 2022-11-29 00:37 | Day surgery (SDC) | payer MEDICARE, SELFPAY ==
[2022-11-26 09:08] VITALS: BMI 28.9
--- NOTE | 2022-11-26 09:32 | PC.NURSE ---
Report to the Outpatient Waiting Room, entrance under the green pavilion located off [facility], at time __1130 on date __11/29/22 . Planned Procedure Time: __1:3- PM . Time changes happen often and if your time is changed the preop area will call you the afternoon before. - You and your visitor will be asked to self-screen and do not enter if you have any COVID symptoms. - A mask is optional within the hospital at this time. Patients may have clear liquids (water, carbonated beverages, clear teas, apple juice) until 3 hours prior to surgery (1030 AM) with a maximum of 20 ounces. - No food from midnight until time of surgery - Infants may have breast milk until 4 hours before surgery, infant formula 6 hours prior to surgery. - Children will be allowed to drink immediately following surgery. If applicable, please bring a bottle or sippy cup to assist with drinking. Juice, water, soda, and popsicles are readily available. For infants on formula, please bring formula the day of surgery. Pacifiers are allowed. Take the following medications with a SIP of water the morning of surgery: NONE DO NOT STOP ANY OF YOUR OTHER PRESCRIPTION MEDICATIONS PRIOR TO SURGERY ?EXCEPT THE FOLLOWING Medications to discontinue per physician MELOXICAM PER DR HURT - CALL FOR INSTRUCTIONS__ Date to take last dose Please no make-up, nail bahraini, hairspray, perfume, deodorant, or body powder the day of surgery. No jewelry (including any body piercings) or valuables the day of surgery, leave them at home. Please take a shower or bath the night before, or the morning of, surgery with an antibacterial soap. Wear comfortable, loose fitting clothing. Children are encouraged to wear pajamas. - Jewelry must be removed prior to entering the operating room. Rings and piercings that are not removed may be cut off. - The hospital will not accept responsibility for valuables. - Please leave all valuables, including medications, at home the day of surgery. If you are going home after surgery, a licensed diesel truck driver must drive you home. - NO public transportation without another adult if you receive anesthesia. - We recommend that an adult stay with you for 24 hours following discharge. - We also recommend that you do not drive, make important decision, drink alcoholic beverages, or take any drugs that were not prescribed by your health care provider for at least 24 hours after your discharge time. For Pediatric surgeries, we recommend two adults accompany the child home. Follow any additional instructions given to you from your surgeon. If you or anyone in your household have experienced Covid symptoms in the past week, please notify your surgeon or the nurse liaison at the phone number below for possible testing. Telephone instructions given to ___PT and asked if any additional questions and then verbalized understanding. Patient advised to call surgeon office or pre surgery nurse liaison [phone] if any additional questions.
--- NOTE | ~2022-11-29 | XR_ITS ---
EXAMINATION: XR fl guide central line place DATE: 11/29/2022 12:04 INDICATION: Port catheter insertion TECHNIQUE: Single frontal fluoroscopic image of the central chest was obtained during procedure perfo rmed by Dr. Robledo. Radiologist was not present for the imaging or procedure. The amount of fluoroscopy time used during this procedure was 0.5 minutes. COMPARISON: None. FINDINGS/IMPRESSION: Distal tip of a right internal jugular central venous catheter projects over the caudal superior vena cava. Correlate with procedure note for further detail. Reviewed, dictated and finalized at location A.
--- NOTE | ~2022-11-29 | XR_ITS ---
XR chest port-a-cath/central DATE: 11/29/2022 12:04 INDICATION: Port-A-Cath placement TECHNIQUE: Portable upright AP chest on 11/29/2022 at 1159 hours COMPARISON: None FINDINGS: Right internal jugular Port-A-Cath catheter is noted with distal tip overlying superior anahy a cava. There is approximately 2.6 cm overlapping of the catheter in the lower cervical area; kinking of the tube cannot be confirmed or excluded in this single anteroposterior plane. Lateral chest May be helpful for this purpose if the catheter is not properly functional. Heart size appears within normal range. Is aortic calcification and mild unfolding. No hilar or media stinal enlargement is detected. No pulmonary infiltrate or consolidation, pleural effusion or pulmonary vascular congestion or pneumo thorax is detected. Degenerative change of the thoracic spine. IMPRESSION: Right Port-A-Cath catheter tip overlies superior vena cava No active cardiopulmonary disease Aortic atherosclerosis Reviewed, dictated and finalized at Location A. Reviewed, dictated and finalized at location B.
[2022-11-29 09:40] LABS: Glucose Point of Care 131 mg/dl (65-105)
[2022-11-29 09:57] VITALS: BP 142/84; PULSE 57; RESP 20; TEMP 36.4; O2SAT 100; BMI 28.6
--- NOTE | 2022-11-29 09:58 | WPDANESEPPF ---
Anes - Initial Pre Proc Eval Procedure: Operation Date: 11/29/22 10:30 Proposed Procedures p Insertion Manoj Cath - Jules Robledo MD Date/Time: 11/29/22 09:58 Surgeon: Jules Robledo MD Pre Op Diagnosis: nonhodgkins lymphoma of intra abd lymph node Patient Data Age: 82 Gender: M Height: 1.73 m Weight: 86.36 kg Allergies Allergy/AdvReac Type Severity Reaction Status Date / Time No Known Allergies Allergy Mild Verified 11/29/22 09:49 Home Medications Medication Instructions Recorded Confirmed Type aspirin 81 mg capsule 81 mg PO DAILY 06/19/21 11/29/22 History cholecalciferol (vitamin D3) 125 125 mcg PO DAILY 06/19/21 11/29/22 History mcg (5,000 unit) capsule diphenhydramine HCl 25 mg capsule 25 mg PO HS PRN Sleep Aid 06/19/21 11/29/22 History (Allergy (diphenhydramine)) ferrous sulfate 325 mg (65 mg 325 mg PO DAILY 06/19/21 11/29/22 History iron) tablet (Feosol) melatonin 10 mg capsule 10 mg PO HS 06/19/21 11/29/22 History doxycycline hyclate 100 mg tablet 100 mg PO DAILY #30 tabs 06/29/22 11/29/22 Rx lancets 32 gauge 09/23/22 11/29/22 History metformin 500 mg tablet 500 mg PO BID #60 tabs 09/23/22 11/29/22 Rx blood sugar diagnostic (OneTouch #50 ea 09/27/22 11/29/22 Rx Ultra Test strips) atorvastatin 80 mg tablet 80 mg PO DAILY #90 tabs 10/22/22 11/29/22 Rx lisinopril 5 mg tablet 5 mg PO DAILY #90 tabs 10/22/22 11/29/22 Rx tramadol 50 mg tablet 50 mg Q8H PRN Pain 11/26/22 11/29/22 History meloxicam 15 mg tablet 15 mg PO DAILY #90 tabs 11/28/22 11/29/22 Rx Laboratory Tests 11/29/22 11/29/22 09:32 09:37 PT Pending INR Pending APTT Pending POC Capillary Glucose 131 H mg/dl (65-105) Patient hx anesthesia problems: none Family hx anesthesia problems: none Results Review: All pre-operative results and documents have been reviewed as part of the pre-operative evaluation. [facility] Past Medical History Medical History Back spasm BMI 28.0-28.9,adult BMI 31.0-31.9,adult Coronary artery disease Diabetes Fatigue History of myocardial infarction Hyperlipemia, mixed Hypertension Iron deficiency anemia Non-Hodgkin lymphoma Partial nontraumatic amputation of foot Rosacea Surgical History Surgical History History of back surgery L5 History of coronary artery stent placement History of knee surgery History of penile implant Family History Family History Father Stomach ulcer Mother Acute myocardial infarction Heart disease Pacemaker Sibling , alzheimer's No problems noted. Sibling Alcoholism Tobacco abuse Social History Social History Social History: Lives at home with his girlfriend. He is independent in his daily activities. His PCP is Dr. Solano. He is a full code. Smoking packs per day: 1 Smoking cigarettes per day: 20.0 Years smoked: 3 Smoking pack-years: 3.00 Smoking status: Former smoker Tobacco type: cigarettes Second hand tobacco smoke exposure: No Smoking end date: 02/14/58 Alcohol intake: current Drinks per week: 3 Alcohol use details: 6-9 BEERS/WEEK Substance use: never Substance use type: does not use Lack of Transportation: No Lack of Food: Never True Current Housing: I Have Housing Concerned About Future Housing: No Difficulty Paying Gas/Electric Bills: No Difficulty Paying for Meds: No Currently Unemployed: No Education: Trade/Vocational Certificate Difficulty w/ Childcare or Family Care: No Living arrangements: alone Occupation/Education: retired 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
[2022-11-29 10:12] LABS: Partial Thromboplastin Time 28.4 SECONDS (22.3-36.8)
[2022-11-29] MEDS: LACTATED RINGERS 1,000 ML 30 ML IV CONT (10:17)
[2022-11-29] MEDS: LIDO 1%/EPINEPHRINE 1:100,000 50 ML VIAL 20 ML INFILTRATE (10:18)
[2022-11-29] MEDS: HEPARIN SODIUM 5,000 UNITS/ML VIAL 5000 UNITS IRRIGATION (10:19)
[2022-11-29] MEDS: HEPARIN SODIUM 1,000 UNITS/ML VIAL 1000 UNITS IV PUSH (10:19)
--- NOTE | 2022-11-29 10:44 | PM.IMHP ---
H&P: HPI History of Present Illness Date/Time: 11/29/22 10:44 Chief Complaint: Lymphoma, need for portacatheter placement Narrative: Pt recently diagonosed with lymphoma. No hx of prior lymphoma and no prior chemo tx. No hx of central lines in IJ or SC veins. Pt overall very healthy. Review of Systems Review of Systems: The remainder of the review of systems to include constitutional, HEENT, cardiovascular, respiratory, GI, , integumentary, musculoskeletal, endocrine, immunologic, hematologic, psychiatric, and neurologic are all negative except for which is mentioned above in the HPI. [facility] Past Medical History Medical History Back spasm BMI 28.0-28.9,adult BMI 31.0-31.9,adult Coronary artery disease Diabetes Fatigue History of myocardial infarction Hyperlipemia, mixed Hypertension Iron deficiency anemia Non-Hodgkin lymphoma Partial nontraumatic amputation of foot Rosacea Surgical History Surgical History History of back surgery L5 History of coronary artery stent placement History of knee surgery History of penile implant Family History Family History Father Stomach ulcer Mother Acute myocardial infarction Heart disease Pacemaker Sibling , alzheimer's No problems noted. Sibling Alcoholism Tobacco abuse Social History Social History Social History: Lives at home with his girlfriend. He is independent in his daily activities. His PCP is Dr. Solano. He is a full code. Smoking packs per day: 1 Smoking cigarettes per day: 20.0 Years smoked: 3 Smoking pack-years: 3.00 Smoking status: Former smoker Tobacco type: cigarettes Second hand tobacco smoke exposure: No Smoking end date: 02/14/58 Alcohol intake: current Drinks per week: 3 Alcohol use details: 6-9 BEERS/WEEK Substance use: never Substance use type: does not use Lack of Transportation: No Lack of Food: Never True Current Housing: I Have Housing Concerned About Future Housing: No Difficulty Paying Gas/Electric Bills: No Difficulty Paying for Meds: No Currently Unemployed: No Education: Trade/Vocational Certificate Difficulty w/ Childcare or Family Care: No Living arrangements: alone Occupation/Education: retired 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 Gender identity (if verbalized by the patient): Male Spiritual care concerns: No Meds Home Medications and Allergies Home Medications Medication Instructions Recorded Confirmed Type aspirin 81 mg capsule 81 mg PO DAILY 06/19/21 11/29/22 History cholecalciferol (vitamin D3) 125 125 mcg PO DAILY 06/19/21 11/29/22 History mcg (5,000 unit) capsule diphenhydramine HCl 25 mg capsule 25 mg PO HS PRN Sleep Aid 06/19/21 11/29/22 History (Allergy (diphenhydramine)) ferrous sulfate 325 mg (65 mg 325 mg PO DAILY 06/19/21 11/29/22 History iron) tablet (Feosol) melatonin 10 mg capsule 10 mg PO HS 06/19/21 11/29/22 History doxycycline hyclate 100 mg tablet 100 mg PO DAILY #30 tabs 06/29/22 11/29/22 Rx lancets 32 gauge 09/23/22 11/29/22 History metformin 500 mg tablet 500 mg PO BID #60 tabs 09/23/22 11/29/22 Rx blood sugar diagnostic (OneTouch #50 ea 09/27/22 11/29/22 Rx Ultra Test strips) atorvastatin 80 mg tablet 80 mg PO DAILY #90 tabs 10/22/22 11/29/22 Rx lisinopril 5 mg tablet 5 mg PO DAILY #90 tabs 10/22/22 11/29/22 Rx tramadol 50 mg tablet 50 mg Q8H PRN Pain 11/26/22 11/29/22 History meloxicam 15 mg tablet 15 mg PO DAILY #90 tabs 11/28/22 11/29/22 Rx Allergies Allergy/AdvReac Type Severity Reaction Status Date / Time No Known Allergies Allergy Mild Verified 11/29/22 09:49 Vital Signs Vital Signs - 24 hr 11/29/22 09:57 Temperature 36.4
--- NOTE | 2022-11-29 10:49 | WPDHPUPDATE1 ---
History and Physical Update Update Date/Time: 11/29/22 10:49 History and Physical has been reviewed, including an updated exam of the patient. There are NO changes in the patient's condition. Risks, benefits, and alternatives have been discussed and questions answered. Patient agrees to proceed with procedure.
[2022-11-29] MEDS: ceFAZolin 2 GM/D5W 50 ML 2 GM/50 ML BAG IVPB (10:55)
--- NOTE | 2022-11-29 11:49 | W.PM.PROC2 ---
Procedure Note - Detailed Date of Procedure 11/29/22 Pre-op Diagnosis nonhodgkins lymphoma of intra abd lymph node Post-op Diagnosis Same Procedure Performed Placement of right internal jugular vein single-lumen port a catheter with intraoperative fluoroscopy. Surgeon Jules Robledo MD Guide Dog Mobility Instructor Ciera Graves BARKEEPER Anesthesia General Indications Patient is a overall fairly healthy 82-year-old gentleman who unfortunately has recently developed abdominal lymphoma. He is undergoing chemotherapy treatments and presents now for placement myla catheter to begin chemotherapy treatments. Findings None significant Description of Procedure After informed consent was obtained patient brought to the operating room and placed supine position and then general LMA anesthesia was administered. The bilateral upper anterior neck and chest was then prepped and draped in usual sterile fashion. A time-out was then performed correctly identifying the patient as well as procedure to be performed. He was given perioperative IV antibiotics. Then with the patient head-down Trendelenburg position and then anesthetized the area between the 2 heads of the right sternocleidomastoid muscle with some 1% lidocaine mixed with 0.5% Marcaine. I then used a long 18gauge spinal needle to percutaneously cannulate the right internal jugular vein on the 1st pass without any difficulty. There was prompt return of dark venous appearing blood. A guidewire was advanced through the needle into the right internal jugular vein and subsequently down into the superior vena cava. Intraoperative fluoroscopy was used to identify the tip of the guidewire and confirmed was in a proper position. I then utilized the same local anesthetic mixture and anesthetized just below the medial 3rd of the right clavicle in the anterior chest wall. A transverse incision was then made in this area with a scalpel and dissection was carried down through the subcu tissue electrocautery. The subcutaneous port pocket was created with electrocautery blunt finger dissection just below the incision. I then tunneled a 9.6 [place] single-lumen catheter from the chest incision to the neck incision. A dilator breakaway sheath was then advanced over the guidewire and the guidewire and dilator were removed leaving the sheath in place. The catheter was then advanced through the sheath into the right internal jugular vein and subsequently down into the right atrium of the heart. The sheath was then torn away. Intraoperative fluoroscopy was then used to visualize the tip of the catheter and then I pulled back on the catheter until the tip was located at the atriocaval junction. The catheter was then cut to the appropriate length the skin level and attached to the Smart Port. The port was then secured in the subcutaneous port pocket on 3 sides with a 3-0 Prolene suture. The pocket was then irrigated sterile saline solution hemostasis was good. I then closed the right upper anterior chest wall incision utilizing interrupted 3-0 Vicryl sutures in the subcutaneous tissues and the skin edges were approximated utilizing a running subcuticular 4-0 Monocryl suture. The small right anterior lateral neck incision was also closed with a 4-0 Monocryl suture. I then accessed the port percutaneously and it aspirated blood easily and was flushed with units of IV heparin. The incisions were then cleaned the skin glue was applied. The patient tolerated the procedure well no complications. All sponges, needles, and instrument counts were correct at the end procedure. EBL was _10__cc. The patient was awakened and taken to recovery in stable and satisfactory condition. Implants Smart Port attached to 9.6 [place] single-lumen catheter right internal jugular vein. Estimated Blood Loss 10 Drains No Packing No Pathology None sent Complications No immediate complications Condition Stable Disposition PACU [facility] Billing Surgery - Charge Forward: Brett
[2022-11-29 11:50] VITALS: BP 132/69; PULSE 62; RESP 15; O2SAT 99
[2022-11-29 12:00] LABS: Glucose Point of Care 147 mg/dl (65-105)
[2022-11-29 12:15] VITALS: BP 149/56; PULSE 79; RESP 20
[2022-11-29 12:45] VITALS: BP 140/55; PULSE 80; RESP 20
[2022-11-29 13:00] VITALS: BP 146/60; PULSE 80; RESP 20
== END 2022-11-29 13:10 | disposition home or self-care (01) ==
PROVIDERS: PCP Family Medicine; Visit Provider Surgery
PROC: (CPT 36561; principal; 2022-11-29 10:30)
DX: C82.90 Follicular lymphoma, unspecified, unspecified site (principal); I70.0 Atherosclerosis of aorta; I25.10 Atherosclerotic heart disease of native coronary artery without angina pectoris; E11.9 Type 2 diabetes mellitus without complications; E78.2 Mixed hyperlipidemia; I10 Essential (primary) hypertension; D50.9 Iron deficiency anemia, unspecified; Z95.5 Presence of coronary angioplasty implant and graft; Z87.891 Personal history of nicotine dependence; Z79.82 Long term (current) use of aspirin; Z79.84 Long term (current) use of oral hypoglycemic drugs; Z79.891 Long term (current) use of opiate analgesic
CPT/HCPCS: 36561; 36415; 77001; 82948; 85610; 85730; C1788; J0690; J1644; J2405; J2704; J3010; J7030; J7120

== ENCOUNTER 2023-02-15 10:06 | Observation (INO) | payer MEDICARE, SELFPAY ==
--- NOTE | ~2023-02-15 | XR_ITS ---
EXAMINATION: XR foot RT min 3V DATE: 02/15/2023 11:35 INDICATION: Weeping sores at the distal right foot TECHNIQUE: Dorsoplantar, two oblique and lateral views of the right foot were obtained. COMPARISON: None. FINDINGS: Postoperative change of a right forefoot amputation at the level of the tarsal metatarsal joints. The re is an irregular but some of the corticated osteotomy margin along portions of the medial and mid c uneiforms insertion with a few likely small residual bone fragments along the distal margin of the la teral cuneiform and cuboid. No cortical erosion or appreciable osteolysis to suggest osteomyelitis. N o evident soft tissue gas. Normal bone alignment at the right ankle and hindfoot. No fracture. Small plantar calcaneal spur. Mild osteoarthritis at the tibiotalar, subtalar, talonavicular and calcaneal cuboid joints. IMPRESSION: 1. 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 Reviewed, dictated and finalized at location A. OM[employer] EXPERIENCE MANAGER IMPRESSION: 1. Changes of chronic right transjugular tarsal metatarsal forefoot amputation with no evident soft tissue gas or findings to suggest osteomyelitis.
[2023-02-15 10:27] VITALS: BP 145/101; PULSE 62; RESP 16; TEMP 37; O2SAT 97
[2023-02-15 11:58] VITALS: BP 116/65; PULSE 60; RESP 17; O2SAT 100
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
[2023-02-15 13:10] LABS: Basophils Percent Auto 0.3 % (0.2-1.2); Eosinophils Absolute Auto 0.2 K/mm3 (0-0.3); Eosinophils Percent Auto 5.5 % (0-4.4); Hematocrit 36.5 % (42.0-52.0); Hemoglobin 11.7 g/dL (14.0-18.0); Immature Granulocyte Absolute 0.03 K/mm3 (0.00-0.031); Immature Granulocyte Percent A 0.8 % (0-0.5); Lymphocytes Absolute Auto 0.63 K/mm3 (0.9-3.2); Lymphocytes Percent Auto 16.5 % (18.3-44.2); Mean Corpuscular HGB Conc 32.1 g/dl (32-36); Mean Corpuscular Hemoglobin 30.5 pg (26-34); Mean Corpuscular Volume 95.1 fl (80-100); Mean Platelet Volume 9.5 fl (7.4-10.4); Monocytes Absolute Auto 0.6 K/mm3 (0.1-0.6); Monocytes Percent Auto 14.7 % (2.6-8.5); Neutrophils Absolute Auto 2.4 K/mm3 (1.3-6.7); Neutrophils Percent Auto 62.2 % (45.5-73.1); Platelet Count Result 225 k/mm3 (150-375); Red Blood Count 3.84 M/mm3 (4.6-6.20); Red Cell Distribution Width 14.1 % (11.5-14.5); White Blood Count 3.8 K/mm3 (4.5-10.0)
[2023-02-15 13:19] LABS: Alanine Aminotransferase 17 U/L (6-50); Albumin Level 3.9 g/dL (3.5-5.1); Alkaline Phosphatase 63 U/L (38-126); Anion Gap 9 mmol/L (8-16); Aspartate Amino Transferase 28 U/L (17-59); Bilirubin,Total 0.9 mg/dL (0.2-1.3); Blood Urea Nitrogen 13 mg/dL (9-20); Calcium 9.3 mg/dL (8.4-10.2); Carbon Dioxide 24 mmol/L (22-30); Chloride 101 mmol/L (98-107); Estimated CRCL calculation 54 ml/min; Estimated Glomerular Filt Rate > 60; Glucose 140 mg/dL (65-110); Potassium 5.1 mmol/L (3.4-5.0); Sodium 134 mmol/L (137-145)
[2023-02-15 14:59] VITALS: BP 148/65; PULSE 63; RESP 18; O2SAT 98
[2023-02-15 16:09] LABS: Lactic Acid Reflex 1.5 mmol/L (0.7-2.0)
[2023-02-15] MEDS: VANCOMYCIN 1,250 MG/NS 250 ML 1,250 MG/250 ML BAG 166.67 MG IVPB (16:24)
--- NOTE | 2023-02-15 17:11 | PM.CNGS ---
Assessment and Plan Assessment and plan (1) Diabetic foot infection: Code(s): E11.628 - Type 2 diabetes mellitus with other skin complications; L08.9 - Local infection of the skin and subcutaneous tissue, unspecified Status: Acute Assessment and Plan: I reviewed the x-ray and discussed the findings with the patient. He has a localized infection the distal dorsal surface of his amputation site. There appears to be a small abscess deep to the skin, but there does not appear to be signs of deeper soft tissue infection or osteomyelitis. Will plan to proceed with bedside incision and drainage tomorrow under local anesthetic. Continue IV antibiotics per hospitalist. Hopefully this will the adequately treated with local wound care and will not need any further amputation. (2) Follicular lymphoma: Code(s): C82.90 - Follicular lymphoma, unspecified, unspecified site Status: Acute History of Present Illness Consult details Consult date: 02/15/23 Reason for consult: other (Right foot wound) Requesting physician: Atif Navarrete APRN Narrative: This is a 82-year-old man who I am asked to see for a right foot wound. He presented to the emergency department today complaining of pain and drainage his dorsal right foot. He has noticed some redness and pain in the area for the past month, but recently noticed drainage beginning in this area. The drainage is purulence, and he has minimal redness around the wound. He has a history of a crush injury to his right foot and underwent transmetatarsal amputation and skin grafting when he was 17 years old. He has not had any major problems with this since. The patient did state that he has been on his feet a lot more recently and was recently dancing a lot for [employer]. He is diabetic but usually his blood sugars are well controlled. His last hemoglobin A1c was on 01/24/2023 and was 7%. He denies any other diabetic foot wounds in the past. Review of Systems Review of Systems: All systems reviewed & are unremarkable except as noted in HPI and below Constitutional: Constitutional: Denies chills and Denies fever(s) Eyes: Eyes: Denies change in vision ENT: Denies hearing loss, Denies neck pain and Denies sore throat Cardiovascular: Cardiovascular: Denies chest pain and Denies dyspnea Respiratory: Respiratory: Denies cough, Denies dyspnea and Denies wheezing Genitourinary: Genitourinary: Denies hematuria and Denies dysuria Musculoskeletal: Musculoskeletal: Reports as per HPI, Denies arthralgias, Denies joint swelling and Denies neck pain Allergic/Immunologic: Allergic/Immunologic: Denies wheezing FOR[facility]LY [facility] Past Medical History Medical History (Updated 02/15/23 @ 15:34 by Atif Navarrete APRN) Acute otitis media with effusion of both ears Back spasm BMI 28.0-28.9,adult BMI 31.0-31.9,adult Coronary artery disease Diabetes Fatigue Hard of hearing History of myocardial infarction Hyperlipemia, mixed Hypertension Iron deficiency anemia Non-Hodgkin lymphoma Partial nontraumatic amputation of foot Rosacea Surgical History Surgical History (Updated 02/15/23 @ 17:15 by Selvin Srinivasan DO) History of back surgery L5 History of coronary artery stent placement History of knee surgery History of penile implant History of transmetatarsal amputation of right foot Family History Family History Father Stomach ulcer Mother Acute myocardial infarction Heart disease Pacemaker Sibling , alzheimer's No problems noted. Sibling Alcoholism Tobacco abuse Social History Social History Social History: Lives at home with his girlfriend. He is independent in his daily activities. His PCP is Dr. Solano. He is a full code. Smoking packs per day: 1 Smoking cigarettes per day: 20.0 Years smo
--- NOTE | 2023-02-15 17:25 | PC.NURSE ---
This patient, Rex Kaplan, was admitted to 3 Med Surg Room 329-01. Patient/family oriented to hospital policies and general routines including ID bracelet, bed and alarms, visiting hours, pain management, procedures, bathroom and other care routines, personal items, smoking policy, room service/diet, and visiting hours.Report received from Hannah PHAN. Information on how to activate the Rapid Response Team has been discussed. Patient/Family are encouraged to report perceived risks to care and to ask questions if they do not understand what they are told or what they should do.
--- NOTE | 2023-02-15 17:26 | PM.IMHP ---
H&P: HPI History of Present Illness Date/Time: 02/15/23 17:30 Chief Complaint: Pain, swelling, and drainage from the right foot. Narrative: This is a very pleasant 82-year-old gentleman with type 2 diabetes mellitus presented to the emergency department via private vehicle from home for evaluation of pain, swelling, and drainage from the right foot. The patient provides the following history. 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 He has not had any major issues since that time however over the past month or so he has developed mild discomfort and redness at the amputation site. He went out dancing on [address] [place] and the following day he noticed a small amount of purulent drainage which prompted him to come in for evaluation. He denies systemic symptoms and specifically denies fever, chills, sweats, generalized malaise, nausea, and vomiting. He believes his diabetes well controlled but he does not recall his last hemoglobin A1c. He has no known history of multidrug resistant organisms. He was afebrile on arrival with a WBC count of 3.8, lactic acid 1.5. Radiographs showed no findings of gas or evidence to suggest osteomyelitis. He received a dose of vancomycin he is being admitted in this setting for further antibiotics and surgery consultation for possible incision and drainage. Review of Systems Review of Systems: Twelve systems were reviewed and are negative except for as per HPI. [facility] Past Medical History Medical History Coronary artery disease Hearing loss History of myocardial infarction Hyperlipemia, mixed Hypertension Iron deficiency anemia Non-Hodgkin lymphoma Rosacea Type 2 diabetes mellitus Surgical History Surgical History History of back surgery L5 History of coronary artery stent placement History of knee surgery History of penile implant History of transmetatarsal amputation of right foot Family History Family History Father Stomach ulcer Mother Acute myocardial infarction Heart disease Pacemaker Sibling , alzheimer's No problems noted. Sibling Alcoholism Tobacco abuse Social History Social History (Updated 02/15/23 @ 21:12 by Lisa Sales PA-C) Social History: Healthcare power of deputy attorney general: Marielos Joseph. Code status: Full code. Smoking packs per day: 1 Smoking cigarettes per day: 20.0 Years smoked: 3 Smoking pack-years: 3.00 Smoking status: Former smoker Tobacco type: cigarettes Second hand tobacco smoke exposure: No Smoking end date: 02/14/58 Alcohol intake: current Drinks per week: 3 Alcohol use details: 6-9 BEERS/WEEK Substance use: never Substance use type: does not use Do You Feel Safe in your Home?: Yes Lack of Transportation: No Lack of Food: Never True Current Housing: I Have Housing Concerned About Future Housing: No Difficulty Paying Gas/Electric Bills: No Difficulty Paying for Meds: No Currently Unemployed: No Education: Trade/Vocational Certificate Difficulty w/ Childcare or Family Care: No Living arrangements: alone Occupation/Education: retired 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
[2023-02-15 17:28] VITALS: BMI 29.4
[2023-02-15 17:30] VITALS: BP 152/69; PULSE 79; RESP 16; TEMP 36.3; O2SAT 93
[2023-02-15 17:59] LABS: Hemoglobin A1C 7.1 % (<5.7)
[2023-02-15] MEDS: VANCOMYCIN 1,000 MG/NS 250 ML 1,000 MG/250 ML BAG 250 MG IVPB (18:00)
[2023-02-15 20:00] VITALS: PULSE 60; RESP 18; O2SAT 98
[2023-02-15] MEDS: SODIUM CHLORIDE 0.9% IV 1,000 ML 125 ML IV CONT (20:21)
[2023-02-15] MEDS: CEFEPIME 1 GM/NS 50 ML 1 GM/50 ML BAG IVPB (20:22)
[2023-02-15 20:25] VITALS: BP 139/71; PULSE 60; RESP 18; TEMP 36.3; O2SAT 98
[2023-02-15 20:31] LABS: Glucose Point of Care 119 mg/dl (65-105)
[2023-02-15] MEDS: metroNIDAZOLE 500 MG/ISO 100ML 500 MG/100 ML BAG 100 MG IVPB (21:45)
[2023-02-15] MEDS: diphenhydrAMINE HCl CAP 25 MG CAPSULE PO (21:46)
[2023-02-16 04:30] VITALS: BP 145/88; PULSE 69; RESP 20; TEMP 36.6; O2SAT 99
[2023-02-16] MEDS: metroNIDAZOLE 500 MG/ISO 100ML 500 MG/100 ML BAG 100 MG IVPB (04:58)
[2023-02-16] MEDS: CEFEPIME 1 GM/NS 50 ML 1 GM/50 ML BAG IVPB (05:52)
[2023-02-16 06:38] LABS: Hematocrit 34.2 % (42.0-52.0); Hemoglobin 11.5 g/dL (14.0-18.0); Mean Corpuscular HGB Conc 33.6 g/dl (32-36); Mean Corpuscular Hemoglobin 31.4 pg (26-34); Mean Corpuscular Volume 93.4 fl (80-100); Mean Platelet Volume 9.3 fl (7.4-10.4); Platelet Count Result 206 k/mm3 (150-375); Red Blood Count 3.66 M/mm3 (4.6-6.20); Red Cell Distribution Width 13.8 % (11.5-14.5); White Blood Count 3.2 K/mm3 (4.5-10.0)
[2023-02-16 06:57] LABS: Anion Gap 9 mmol/L (8-16); Blood Urea Nitrogen 14 mg/dL (9-20); Calcium 8.7 mg/dL (8.4-10.2); Carbon Dioxide 23 mmol/L (22-30); Chloride 103 mmol/L (98-107); Estimated CRCL calculation 52 ml/min; Estimated Glomerular Filt Rate > 60; Glucose 127 mg/dL (65-110); Magnesium 1.8 mg/dL (1.6-2.3); Potassium 4.2 mmol/L (3.4-5.0); Sodium 135 mmol/L (137-145)
[2023-02-16 07:51] LABS: Glucose Point of Care 143 mg/dl (65-105)
--- NOTE | 2023-02-16 07:52 | PM.IMPN ---
Progress Note: A&P Assessment and Plan (1) Type 2 diabetes mellitus: Code(s): E11.9 - Type 2 diabetes mellitus without complications Status: Acute (2) Diabetic foot infection: Code(s): E11.628 - Type 2 diabetes mellitus with other skin complications; L08.9 - Local infection of the skin and subcutaneous tissue, unspecified Status: Acute Plan Diabetic foot infection: chronic, chronic right transjugular tarsal metatarsal forefoot amputation with no evident soft tissue gas or findings to suggest osteomyelitis. -continue wound management -scheduled for bedside I& D/ pt reports he wants to go home today -fall precautions Type 2 Diabetes: -continue monitor blood glucose q.4 hours VTE Prophylaxis: SCDs on unaffected area Diet: diabetic Anticipated hospital stay: <1 day Subjective Date/time seen: 02/16/23 07:52 Interval history: Chief Complaint: Pain, swelling, and drainage from the right foot. Narrative: This is a very pleasant 82-year-old gentleman with type 2 diabetes mellitus presented to the emergency department via private vehicle from home for evaluation of pain, swelling, and drainage from the right foot. The patient provides the following history. 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 He has not had any major issues since that time however over the past month or so he has developed mild discomfort and redness at the amputation site. He went out dancing on [employer] and the following day he noticed a small amount of purulent drainage which prompted him to come in for evaluation. He denies systemic symptoms and specifically denies fever, chills, sweats, generalized malaise, nausea, and vomiting. He believes his diabetes well controlled but he does not recall his last hemoglobin A1c. He has no known history of multidrug resistant organisms. He was afebrile on arrival with a WBC count of 3.8, lactic acid 1.5. Radiographs showed no findings of gas or evidence to suggest osteomyelitis. He received a dose of vancomycin he is being admitted in this setting for further antibiotics and surgery consultation for possible incision and drainage. 02/16/2022: Patient seen this morning by the bedside, he is awake A&O x4, surgery is by the bedside performing debridement, patient denies any overnight events, he denies any chest pain fever chills nausea vomiting. Patient reports he is wanting to go home today. Review of Systems Review of Systems: Twelve systems were reviewed and are negative except for as per HPI. Exam Narrative: General: A well-developed, nontoxic-appearing male sitting up in bed in no acute distress. Weight: 80 kg. BMI: 28.5. HEENT: PERRL, EOMI. Sclera anicteric. Oral mucosa moist. Neck: Supple. Respiratory: Lungs are clear to auscultation bilaterally. Cardiovascular: Regular rate and rhythm with S1-S2. Gastrointestinal: Abdomen is soft, nontender, and nondistended with positive bowel sounds. Skin: Warm and dry. There is mild swelling and erythema at the site of a prior transmetatarsal amputation. There is a less than an eraser size wound opening on the dorsal medial surface with adjacent fluctuance. Purulent drainage was able to be expressed. He has some tenderness to palpation over this area. Extremities: No cyanosis, clubbing, or significant edema. Radial and pedal pulses intact. Neurological: Alert. Cranial nerves 2-12 are grossly intact. No gross focal deficits to casual conversation. Psychiatric: Pleasant and cooperative with normal mood and affect. Judgment and insight intact. Objective Data Vital Signs Vital Signs: Vital Signs - 24 hr 02/15/23 10:27 02/15/23 11:58 02/15/23 14:59 Temperature 98.6 F Pulse Rate 62 60 63 Respiratory Rate 16 17 18 Blood Pressure 145/101 H 116/65 148/65 H Pulse Oximetry 97 100 98 Oxygen Delivery 02/15/23 17:30
[2023-02-16] MEDS: lisinopriL 5 MG TABLET PO (08:46)
[2023-02-16] MEDS: CHOLECALCIFEROL 1,000 UNITS TABLET 5000 UNITS PO (08:46)
[2023-02-16] MEDS: ATORVASTATIN 40 MG TABLET 80 MG PO (08:46)
[2023-02-16] MEDS: DOXYCYCLINE HYCLATE 100 MG TABLET PO (08:46)
[2023-02-16] MEDS: metFORMIN HCL 500 MG TABLET PO (08:46)
--- NOTE | 2023-02-16 11:39 | W.PM.PROC2 ---
Procedure Note - Detailed Date of Procedure 02/16/23 Pre-op Diagnosis Right foot abscess Post-op Diagnosis Same (Right diabetic foot infection) Procedure Performed Incision and drainage of simple right foot abscess Surgeon MIAN Dotson Survey Research Manager SYLVESTER Pak Anesthesia Local (5 mL of 1% lidocaine) Indications This is an 82-year-old man who has a history of a crush injury to his right foot and underwent transmetatarsal amputation and skin grafting when he was 17 years old. He presented to the ER yesterday with complaints of redness, swelling and pain to the right foot stump. Workup showed a right diabetic foot infection with abscess. Right foot x-rays were negative for osteomyelitis. Wound cultures obtained. We discussed treatment options and decision was made to proceed with bedside incision and drainage with local anesthetic on the medical floor. Consent was obtained. Findings Right foot abscess at the distal stump Description of Procedure The patient was placed in the supine position. The site of the abscess for required I&D was identified. Following this, the area was prepped with iodine and draped in usual sterile fashion. Then, local anesthetic was infiltrated directly over the area of swelling and abscess formation. After allowing the local anesthetic to work, a direct incision was made with an #11 blade scalpel over the fluctuant area of the abscess. There was scant cloudy sanguineous drainage encountered. The abscess cavity was probed and no other areas of purulent drainage were noted. Following this, the area was packed with 1/4 inch iodoform Nu Gauze. The area was then covered with 4x4s and tape. The patient tolerated the procedure well. Estimated Blood Loss 0 Drains No Packing Yes (1/4 iodoform packing) Complications No immediate complications Condition Stable Disposition No change [facility] Billing Surgery - Charge Forward: Surgery Billing
--- NOTE | 2023-02-16 11:47 | PM.PNGS ---
Progress Note: A&P Assessment and Plan (1) Diabetic foot infection: Code(s): E11.628 - Type 2 diabetes mellitus with other skin complications; L08.9 - Local infection of the skin and subcutaneous tissue, unspecified Status: Acute Assessment and Plan: Tolerated I&D this AM. OK to discharge home today. Wound care discussed with patient. Follow up in 2 weeks in office. Subjective Subjective Date/Time Seen: 02/16/23 11:47 Interval history: Tolerated bedside I&D this AM. Wants to go home. Exam Extrem: Other: foot wound dressing in place after I&D Objective Data Vital Signs Vital Signs: Vital Signs - 24 hr 02/15/23 11:58 02/15/23 14:59 02/15/23 17:30 Temperature 36.3 C L Pulse Rate 60 63 79 Respiratory Rate 17 18 16 Blood Pressure 116/65 148/65 H 152/69 H Pulse Oximetry 100 98 93 Oxygen Delivery 02/15/23 17:39 02/15/23 20:25 02/15/23 20:00 Temperature 36.3 C L Pulse Rate 60 60 Respiratory Rate 18 18 Blood Pressure 139/71 Pulse Oximetry 98 98 Oxygen Delivery Room Air Room Air 02/16/23 04:30 Temperature 36.6 C Pulse Rate 69 Respiratory Rate 20 Blood Pressure 145/88 H Pulse Oximetry 99 Oxygen Delivery Intake/Output Intake/Output: Intake & Output 02/13/23 02/14/23 02/15/23 02/16/23 23:59 23:59 23:59 23:59 Intake Total 650 1110 Output Total 2775 Balance 650 -1665 Meds/Results Medications: Active Medications Generic Name Dose Route Start Last Admin Trade Name Freq PRN Reason Stop Dose Admin Acetaminophen 650 mg 02/15/23 17:39 Acetaminophen 325 Mg Tablet PO Q6H PRN Mild Pain (1-3) or Fever Aspirin 81 mg 02/17/23 09:00 Aspirin 81 Mg Enteric Tablet PO 03/19/23 08:59 DAILY SHAILA Atorvastatin Calcium 80 mg 02/16/23 09:00 02/16/23 08:46 Atorvastatin 40 Mg Tablet PO 80 mg DAILY SHAILA Administration Dextrose 12.5 gm 02/15/23 17:39 Dextrose 50% 25 Gm/50 Ml Syringe IV PUSH PRN PRN Hypoglycemia Protocol Diphenhydramine HCl 25 mg 02/15/23 21:12 02/15/23 21:46 Diphenhydramine Hcl Cap 25 Mg Capsule PO 25 mg HS PRN Administration Sleep Aid Doxycycline Hyclate 100 mg 02/16/23 09:00 02/16/23 08:46 Doxycycline Hyclate 100 Mg Tablet PO 100 mg DAILY SHAILA Administration Ferrous Sulfate 325 mg 02/16/23 12:00 Ferrous Sulfate [address] PO DAILY@1200 SHAILA Glucagon 1 mg 02/15/23 17:39 Glucagon For Inj 1 Mg Vial IM PRN PRN Hypoglycemia Protocol Glucose 15 gm 02/15/23 17:39 Glucose Oral Gel 15 Gm Of Glucse In 37.5 Gm Tube PO PRN PRN Hypoglycemia Protocol Vancomycin HCl 1,500 mg in 500 mls @ 250 mls/hr 02/16/23 17:00 Vancomycin 1,500 Mg/Ns 500 Ml IVPB Q24H SHAILA Dextrose 1,000 mls @ 100 mls/hr 02/15/23 17:39 Dextrose 5% 1,000 Ml IVPB PRN PRN Hypoglycemia Protocol Cefepime HCl 1 gm in 50 mls @ 100 mls/hr 02/15/23 18:00 02/16/23 05:52 Maxipime 1 Gm/Ns 50 Ml IVPB 100 mls/hr Q12H SHAILA Administration Metronidazole 500 mg in 100 mls @ 100 mls/hr 02/15/23 22:00 02/16/23 04:58 Flagyl 500 Mg/Iso Soln 100 Ml IVPB 100 mls/hr Q8H SHAILA Administration Insulin Aspart 2 - 5 units 02/16/23 08:00 02/16/23 08:45 Insulin Aspart (*Bkc) 100 Units/Ml SUB-Q Not Given TIDWM [facility] Protocol Insulin Aspart 1 - 2 units 02/15/23 21:00 02/15/23 20:40 Insulin Aspart (*Bkc) 100 Units/Ml SUB-Q Not Given HS [facility] Protocol Lisinopril 5 mg 02/16/23 09:00 02/16/23 08:46 Lisinopril 5 Mg Tablet PO 5 mg DAILY SHAILA Administration Melatonin 10 mg 02/16/23 21:00 Melatonin 5 Mg Tablet PO HS SHAILA Metformin HCl 500 mg 02/16/23 09:00 02/16/23 08:46 Metformin Hcl 500 Mg Tablet PO 500 mg BID SHAILA Administration Vitamin D 5,000 units 02/16/23 09:00 02/16/23 08:46 Cholecalciferol 1,000 Units Tablet PO 5,000 units DAILY [facility] Administratio
[2023-02-16 12:02] LABS: Glucose Point of Care 125 mg/dl (65-105)
[2023-02-16] MEDS: FERROUS SULFATE 325 MG TABLET DR PO (12:19)
--- NOTE | 2023-02-16 13:36 | PM.DS ---
DS: Admitting Diagnosis Discharge Date 02/16/2022 Admitting Diagnosis Right foot abscess DS: Summary Hospital Course Reason for hospitalization: 82-year-old gentleman with type 2 diabetes mellitus presented to the emergency department via private vehicle from home for evaluation of pain, swelling, and drainage from the right foot. Hospital Course: Chief Complaint: Pain, swelling, and drainage from the right foot. Narrative: 82-year-old gentleman with type 2 diabetes mellitus presented to the emergency department via private vehicle from home for evaluation of pain, swelling, and drainage from the right foot. The patient provides the following history. 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 He has not had any major issues since that time however over the past month or so he has developed mild discomfort and redness at the amputation site. He went out dancing on [employer] and the following day he noticed a small amount of purulent drainage which prompted him to come in for evaluation. He denies systemic symptoms and specifically denies fever, chills, sweats, generalized malaise, nausea, and vomiting. He believes his diabetes well controlled but he does not recall his last hemoglobin A1c. He has no known history of multidrug resistant organisms. He was afebrile on arrival with a WBC count of 3.8, lactic acid 1.5. Radiographs showed no findings of gas or evidence to suggest osteomyelitis. He received a dose of vancomycin he is being admitted in this setting for further antibiotics and surgery consultation for possible incision and drainage. 02/16/2022:??Patient seen this morning by the bedside, he is awake A&O x4, surgery is by the bedside performing debridement, patient denies any overnight events, he denies any chest pain fever chills nausea vomiting.? Patient reports he is wanting to go home today. Mr. 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 He presented to the ER yesterday with complaints of redness, swelling and pain to the right foot stump. Workup showed a right diabetic foot infection with abscess. Right foot x-rays were negative for osteomyelitis. Wound cultures obtained. We discussed treatment options and decision was made to proceed with bedside incision and drainage with local anesthetic on the medical floor. Consent was obtained. Findings Right foot abscess at the distal stump Description of Procedure The patient was placed in the supine position. The site of the abscess for required I&D was identified. Following this, the area was prepped with iodine and draped in usual sterile fashion.? Then, local anesthetic was infiltrated directly over the area of swelling and abscess formation.? After allowing the local anesthetic to work, a direct incision was made with an #11 blade scalpel over the fluctuant area of the abscess. There was scant cloudy sanguineous drainage encountered. The abscess cavity was probed and no other areas of purulent drainage were noted. Following this, the area was packed with 1/4 inch iodoform Nu Gauze.? The area was then covered with 4x4s and tape. The patient tolerated the procedure well. Estimated Blood Loss 0 Drains No Packing Yes (1/4 iodoform packing) Complications No immediate complications Condition Stable Disposition Status at Discharge Cognitive/behavioral status at discha
--- NOTE | 2023-02-16 13:42 | PC.NURSE ---
Patient was indifferent to discharge teaching. Took wound care supplies but had little interest in what this nurse had to say about caring for the wound area.
--- NOTE | 2023-02-17 15:38 | WPDHPUPDATE1 ---
History and Physical Update Update Date/Time: 02/16/23 09:38 History and Physical has been reviewed, including an updated exam of the patient. There are NO changes in the patient's condition. Risks, benefits, and alternatives have been discussed and questions answered. Patient agrees to proceed with procedure.
== END 2023-02-16 13:30 | disposition home or self-care (01) ==
LOC: ANHED 15:34 → ANH3MEDSUR 17:21
PROVIDERS: Physician Assistant; Admitting Provider Internal Medicine; Emergency Provider Nurse Practitioner Family; PCP Family Medicine; Visit Provider Internal Medicine
DX: E11.628 Type 2 diabetes mellitus with other skin complications (principal); L02.611 Cutaneous abscess of right foot; C82.90 Follicular lymphoma, unspecified, unspecified site; E87.5 Hyperkalemia; B95.1 Streptococcus, group B, as the cause of diseases classified elsewhere; Z89.431 Acquired absence of right foot; E78.2 Mixed hyperlipidemia; I10 Essential (primary) hypertension; D50.9 Iron deficiency anemia, unspecified; Z95.5 Presence of coronary angioplasty implant and graft; I25.10 Atherosclerotic heart disease of native coronary artery without angina pectoris; I25.2 Old myocardial infarction; F10.90 Alcohol use, unspecified, uncomplicated; Z87.891 Personal history of nicotine dependence; Z79.82 Long term (current) use of aspirin; Z79.891 Long term (current) use of opiate analgesic; Z79.899 Other long term (current) drug therapy; Z82.49 Family history of ischemic heart disease and other diseases of the circulatory system
CPT/HCPCS: 10060; 36415; 73630; 80048; 80053; 82948; 83036; 83605; 83735; 85025; 85027; 87040; 87070; 87077; 87205; 96365; 99285; A9270; G0378; J0692; J1836; J3370; J7030

== ENCOUNTER 2023-05-23 08:01 | Outpatient (CLI) | payer MEDICARE, SELFPAY ==
--- NOTE | ~2023-05-23 | CT_ITS ---
Clinical Indication: Lymphoma CT Scan of the Chest, Abdomen, and Pelvis with Contrast: Technique: Contiguous sections were acquired throughout the chest, abdomen, and pelvis after intraven ous administration of 100 cc of Omnipaque 350. Dose reduction technique was used on this scan by chey burgos automated exposure control and iterative reconstruction technique. The dose-length product (DL P) was 720.20 mGy-cm. COMPARISON: 11/03/2022 Findings: There is no evidence of any significant mediastinal, hilar or axillary lymphadenopathy. The mediastin al soft tissues and vascular structures appear normal. There is no evidence of pleural or pericardial effusion. The lungs are clear. No pulmonary nodules or infiltrates are noted. The liver, spleen, pancreas, adrenals and kidneys are within normal limits. Gallbladder absent. There are atherosclerotic calcifications of the aorta. There is extensive abnormal retroperitoneal soft ti ssue, encasing the aorta, probably minimally decreased in extent from prior exam. Central mesenteric lymph nodes are significantly decreased in size from prior exam. No bowel obstruction or bowel wall thickening. There is no evidence to suggest acute appendicitis. Urinary bladder is unremarkable. Stable penile prosthesis with reservoir. Prostate gland is enlarged. 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 Central mesenteric lymph nodes are significantly decreased in size from prior exam. Findings are consistent with partial interval response to therapy. Enlarged prostate gland. Reviewed, dictated and finalized at [facility]. 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 Central mesenteric lymph nodes are significantly decreased in size from prior e xam. Findings are consistent with partial interval response to therapy. Enlarged prostate gland.
== END 2023-05-23 08:02 | disposition home or self-care (01) ==
PROVIDERS: PCP Family Medicine; Visit Provider Internal Medicine Hematology & Oncology
DX: C85.93 Non-Hodgkin lymphoma, unspecified, intra-abdominal lymph nodes (principal); N40.0 Benign prostatic hyperplasia without lower urinary tract symptoms
CPT/HCPCS: 71260; 74177; Q9967

== ENCOUNTER 2023-10-18 13:59 | Emergency (ER) | payer MEDICARE, SELFPAY ==
--- NOTE | ~2023-10-18 | CT_ITS ---
EXAMINATION: CT brain wo con DATE: 10/18/2023 14:35 INDICATION: Syncope. Head feels foggy. TECHNIQUE: Computed tomography (CT) of the head was performed without intravenous contrast. Sagittal and coronal reconstructions were performed. The mA was adjusted according to patient size. Iterative reconstruction technique was employed. The dose-length product was 681.00 mGy-cm. COMPARISON: None FINDINGS: Small region of encephalomalacia at the anterior right temporal lobe which could represent sequela of prior infarct or trauma. No acute intracranial hemorrhage, acute infarction or abnormal extra axial fluid collection. There is moderate scattered white matter hypoattenuation consistent with chronic sm all vessel ischemic disease. Symmetric prominence of the sulci and ventricles consistent with mild to moderate age-appropriate diffuse cerebral volume loss. No mass/mass effect. Changes of bilateral int raocular lens replacement. Tiny bilateral mastoid effusions. There is near complete opacification of the left maxillary sinus with thickened sclerotic [place] consistent with chronic sinusitis. Old left n avis bone fracture deformity. IMPRESSION: 1. No acute intracranial process. 2. Small region of encephalomalacia at the anterior right temporal lobe could represent sequela prior infarct or trauma. 3. Age-related changes including mild to moderate diffuse volume loss and moderate scattered white ma tter hypoattenuation consistent with chronic small vessel ischemic disease. 3. Chronic left maxillary sinusitis. Reviewed, dictated and finalized at location A. IMPRESSION: 1. No acute intracranial process. 2. Small region of encephalomalacia at the anterior right temporal lobe could r epresent sequela prior infarct or trauma. 3. Age-related changes including mild to moderate diffuse volume loss and moder ate scattered white matter hypoattenuation consistent with chronic small vessel ischemic disease. 3. Chronic left maxillary sinusitis.
--- NOTE | ~2023-10-18 | CT_ITS ---
EXAMINATION: CTA chest PE protocol DATE: 10/18/2023 16:31 INDICATION: Syncope. TECHNIQUE: Computed tomography angiography (CTA) of the chest was performed with 100 mL Omnipaque-350 intravenous contrast timed to evaluate the pulmonary arteries. Coronal maximum intensity projection 3D-reconstructions were created by the technologist. Automated exposure control and iterative reconst ruction technique were employed. The dose-length product was 422.91 mGy-cm. COMPARISON: Chest CT 05/23/2023 FINDINGS: The lungs demonstrate mild atelectasis. A calcified right lung nodule and calcified right h ilar lymph nodes are consistent with old granulomatous disease. No pleural effusion. Cardiomegaly is noted. There are coronary artery calcifications. No pericardial effusion. There is no pulmonary embol us. There is a right internal jugular port with tip in proximal right atrium. There are gallstones in the gallbladder, which is normal in size. There is confluent aortocaval and left para-aortic lymphad enopathy. There is severe thoracic spondylosis. IMPRESSION: 1. No pulmonary embolus. 2. Partially visualized retroperitoneal lymphadenopathy, stable from 05/23/2023, consistent with lympho ma. Reviewed, dictated and finalized at location A. IMPRESSION: 1. No pulmonary embolus. 2. Partially visualized retroperitoneal lymphadenopathy, stable from 05/23/2023, consistent with lymphoma.
[2023-10-18 14:06] VITALS: BP 133/66; PULSE 79; RESP 18; O2SAT 99
--- NOTE | 2023-10-18 14:23 | ECG_ITS ---
Test Date: 2023-10-18 15:22:08 Measurements Intervals [place] Rate: 76 P: 0 VT: 0 QRS: -77 QRSD: 150 T: 43 QT: 377 QTc: 425 Interpretive Statements SINUS OR ECTOPIC ATRIAL RHYTHM BORDERLINE AV CONDUCTION DELAY RIGHT BUNDLE BRANCH BLOCK LEFT ANTERIOR FASCICULAR BLOCK ABNORMAL ECG No previous ECG available for comparison Electronically Signed On 10-18-2023 15:35:59 CDT by Taurus Casas D.O.
--- NOTE | 2023-10-18 14:25 | ED.GENADULT ---
HPI - General Adult General Chief complaint: Unspecified Stated complaint: head feels like it's full of crap , chills, vomit Time Seen by Provider: 10/18/23 14:07 History of Present Illness HPI narrative: 83-year-old male presented to the emergency department for evaluation for feeling foggy headed. Patient states over the last 2 weeks he has had increased exertional weakness and has been sleeping more during the day. Patient denies any falls or injuries. Patient denies any cough cold or congestion. Patient denies associated nausea vomiting diarrhea. Patient denies any associated abdominal pain. Related Data Home Medications Medication Instructions Recorded Confirmed cholecalciferol (vitamin D3) 125 125 mcg PO DAILY 06/19/21 05/25/23 mcg (5,000 unit) capsule diphenhydramine HCl 25 mg capsule 25 mg PO HS PRN Sleep Aid 06/19/21 05/25/23 (Allergy (diphenhydramine)) ferrous sulfate 325 mg (65 mg 325 mg PO DAILY 06/19/21 05/25/23 iron) tablet (Feosol) melatonin 10 mg capsule 10 mg PO HS 06/19/21 05/25/23 lancets 32 gauge 09/23/22 05/25/23 aspirin 81 mg tablet 81 mg PO DAILY 02/15/23 05/25/23 Allergies Allergy/AdvReac Type Severity Reaction Status Date / Time No Known Allergies Allergy Verified 10/18/23 14:00 Review of Systems Review of Systems: All systems reviewed & are unremarkable except as noted in HPI and below PMFSH Past Medical History Medical History BMI 29.0-29.9,adult Coronary artery disease Hearing loss History of myocardial infarction Hyperlipemia, mixed Hypertension Iron deficiency anemia Non-Hodgkin lymphoma Rosacea Type 2 diabetes mellitus Surgical History Surgical History History of back surgery L5 History of coronary artery stent placement History of knee surgery History of penile implant History of transmetatarsal amputation of right foot Family History Family History Father Stomach ulcer Mother Acute myocardial infarction Heart disease Pacemaker Sibling , alzheimer's No problems noted. Sibling Alcoholism Tobacco abuse Social History Social History Social History: Healthcare power of document review attorney: Marielos Joseph. Code status: Full code. Smoking packs per day: 1 Smoking cigarettes per day: 20.0 Years smoked: 3 Smoking pack-years: 3.00 Smoking status: Former smoker Tobacco type: cigarettes Second hand tobacco smoke exposure: No Smoking end date: 02/14/58 Alcohol intake: current Drinks per week: 3 Alcohol use details: 6-9 BEERS/WEEK Substance use: never Substance use type: does not use Do You Feel Safe in your Home?: Yes Lack of Transportation: No Lack of Food: Never True Current Housing: I Have Housing Concerned About Future Housing: No Difficulty Paying Gas/Electric Bills: No Difficulty Paying for Meds: No Currently Unemployed: No Education: Trade/Vocational Certificate Difficulty w/ Childcare or Family Care: No Living arrangements: alone Occupation/Education: retired 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 HEAD: normocephalic, atraumatic. EYES: PERRLA/EOMI, conjunctivae clear. NOSE: Normal no drainage EARS:TMS clear with good light reflex. THROAT: Pharynx clear, no exudate. NECK: Supple. No adenopathy, no masses. RESPIRATORY: Airway patent, respirations nonlabored. Clear to auscultation bilaterally, no rales, rhonchi, wheezing. CARDIOVASCULAR: Regular rate and rhythm without murmurs rubs or gallops. ABDOMINAL: Soft, nontender, nondistended, normal bowel soun
[2023-10-18 15:11] LABS: Basophils Percent Auto 0.2 % (0.2-1.2); Eosinophils Percent Auto 0.3 % (0-4.4); Hematocrit 33.3 % (42.0-52.0); Hemoglobin 11.7 g/dL (14.0-18.0); Immature Granulocyte Absolute 0.14 K/mm3 (0.00-0.031); Immature Granulocyte Percent A 2.4 % (0-0.5); Lymphocytes Percent Auto 8.4 % (18.3-44.2); Mean Corpuscular HGB Conc 35.1 g/dl (32-36); Mean Corpuscular Hemoglobin 32.4 pg (26-34); Mean Corpuscular Volume 92.2 fl (80-100); Mean Platelet Volume 9.8 fl (7.4-10.4); Monocytes Absolute Auto 0.6 K/mm3 (0.1-0.6); Monocytes Percent Auto 9.4 % (2.6-8.5); Neutrophils Absolute Auto 4.7 K/mm3 (1.3-6.7); Neutrophils Percent Auto 79.3 % (45.5-73.1); Platelet Count Result 192 k/mm3 (150-375); Red Blood Count 3.61 M/mm3 (4.6-6.20); Red Cell Distribution Width 13.5 % (11.5-14.5); White Blood Count 5.9 K/mm3 (4.5-10.0)
[2023-10-18 15:21] LABS: Alanine Aminotransferase 21 U/L (6-50); Albumin Level 3.7 g/dL (3.5-5.1); Alkaline Phosphatase 60 U/L (38-126); Anion Gap 11 mmol/L (4-12); Aspartate Amino Transferase 31 U/L (17-59); Bilirubin,Total 1.3 mg/dL (0.2-1.3); Blood Urea Nitrogen 35 mg/dL (9-20); Calcium 9.3 mg/dL (8.4-10.2); Carbon Dioxide 22 mmol/L (22-30); Chloride 96 mmol/L (98-107); Estimated CRCL calculation 28 ml/min; Estimated Glomerular Filt Rate 38; Glucose 202 mg/dL (65-110); Potassium 4.3 mmol/L (3.4-5.0); Sodium 129 mmol/L (137-145)
[2023-10-18] MEDS: SODIUM CHLORIDE 0.9% IV 1,000 ML 999 ML IV CONT (15:36)
[2023-10-18 15:45] VITALS: BP 151/85; PULSE 71; RESP 18; O2SAT 99
[2023-10-18 15:46] LABS: Influenza A QL RT-PCR Negative (Negative); Influenza B QL RT-PCR Negative (Negative); RSV RNA, RT-PCR Negative (Negative); SARS-CoV-2 RNA PCR Negative (Negative)
[2023-10-18 16:28] LABS: Add Urine Microscopic? YES; Appearance Urine Turbid (Clear); Bacteria Urine 4+ /hpf; Bilirubin Urine Negative (Negative); Blood Urine 2+ (Negative); Color Urine Yellow (Yellow); Glucose Urine UA Negative (Negative); Ketones Urine Negative (Negative); Leukocyte Esterase Ur 3+ LEU/UL (Negative); Need Manual Microscopic Reviewed; Nitrate Urine Negative (Negative); Protein Urine 1+ mg/dL (Negative); RBC Urine 0-2 /hpf (0-2); Specific Grav Ur 1.013 (1.001-1.035); Squamous Epithelial Cell Urine Occasional /hpf (Few); Urobilinogen Urine 0.2 mg/dL (<2.0); WBC Urine >100 /hpf (0-3); pH Urine 5.5 (5.0-9.0)
[2023-10-18 17:30] VITALS: BP 122/69; PULSE 77; RESP 16; TEMP 36.6; O2SAT 98
== END 2023-10-18 17:30 | disposition home or self-care (01) ==
PROVIDERS: Emergency Provider Emergency Medicine; PCP Family Medicine
DX: N39.0 Urinary tract infection, site not specified (principal); Z20.822 Contact with and (suspected) exposure to COVID-19; C85.90 Non-Hodgkin lymphoma, unspecified, unspecified site; I25.10 Atherosclerotic heart disease of native coronary artery without angina pectoris; I10 Essential (primary) hypertension; E78.2 Mixed hyperlipidemia; E11.9 Type 2 diabetes mellitus without complications; D50.9 Iron deficiency anemia, unspecified; Z95.5 Presence of coronary angioplasty implant and graft; Z87.891 Personal history of nicotine dependence; Z89.431 Acquired absence of right foot; Z79.82 Long term (current) use of aspirin; Z79.84 Long term (current) use of oral hypoglycemic drugs; Z79.899 Other long term (current) drug therapy; J32.0 Chronic maxillary sinusitis
CPT/HCPCS: 36415; 70450; 71275; 80053; 81001; 85025; 85380; 87077; 87086; 87088; 87186; 87637; 93005; 96361; 96365; 99284; J0696; J7030; Q9967

== ENCOUNTER 2023-11-22 14:18 | Outpatient (CLI) | payer MEDICARE, SELFPAY ==
--- NOTE | ~2023-11-22 | CT_ITS ---
CLINICAL INDICATION: Non-Hodgkin's lymphoma. COMPARISON: Examination was compared with multiple prior studies, performed most recently on 05/23/2023 and dating back to 10/08/2022. TECHNIQUE: An enhanced CT of the abdomen and pelvis was performed utilizing multislice spiral [employer] ue reconstructed at 2.5 mm slice thickness. Coronal and sagittal reconstructions were performed. Th is CT examination was performed utilizing dose reduction techniques. DLP: 723.8 mGy FINDINGS/OBSERVATIONS: Visualized lower thorax: The bilateral lung bases are clear. The heart is of normal size, without per icardial effusion. Small hiatal hernia is present. Liver: Single phase enhancement of the liver is unremarkable. The liver is not enlarged measuring 16 cm in longitudinal dimension. Gallbladder and biliary system: The gallbladder is decompressed with scattered subcentimeter calculi. Pancreas: Within the proximal body of the pancreas is a well-circumscribed focus of decreased attenua tion measuring 10.2 x 11 x 14.3 mm (anterior to posterior x medial to lateral x cranial to caudal dim ension), series 3, image 58. This has increased in size compared with prior studies. On 05/23/2023, this area measured 8.9 x 10.1 x 12.2 mm (anterior to posterior x medial to lateral x crawler dragline operator nial to caudal dimension), series 3, image 134. On 11/03/2022, this focus measured 8.2 x 7.5 x 10.9 mm (anterior to posterior x medial to lateral x cr anial to caudal dimension), series 3, image 31. On 10/08/2022, this focus measured 6.5 x 6.5 x 10.5 mm (anterior to posterior x medial to lateral x cr anial to caudal dimension), series 3, image 134. No additional lesions are present within the pancreas. No ductal dilatation is noted. Spleen: The spleen measures 10.6 cm in longitudinal dimension, borderline enlarged. Kidneys: The bilateral kidneys enhance homogeneously without hydronephrosis or renal calculi. There are 2 right renal arteries, the more cranial of the two courses through the retroperitoneal lym phadenopathy, and is likely occluded. Adrenal glands: Unremarkable Gastrointestinal tract: Fecal stasis within the colon. Recto sigmoid diverticulosis without surroundi ng inflammatory change. Appendix:The appendix is of normal caliber (series 3, image [id number]). Vasculature: Calcified atherosclerotic disease. The IVC is patent Lymph nodes: Decrease in size of the periaortic/retroperitoneal lymphatic infiltration at the level o f the left renal vein. This infiltration extends to the level of the aortic bifurcation caudally, without extending into the pelvis. The posterior to anterior measurement from the L2 vertebral body, perpendicular to the left renal vei n is 27.4 mm on today's study (steadily decreasing in size). This distance measured 39.7 mm on original scan performed 10/08/2022; 41.3 mm on 11/03/2022; and 32.7 m m on 05/23/2023. Pelvic structures:Mural thickening within the bladder wall with hyperemia and surrounding inflammator y change, similar in appearance to multiple prior examinations, likely chronic. The prostate gland is irregular in contour and demonstrates mass effect upon the base of the bladder. Stable penile prosthetic with reservoir in the right hemipelvis. Body wall and musculoskeletal: Degenerative disease within the lumbosacral spine, with osteophyte for mation, disc space narrowing, endplate changes and vacuum phenomena. No lytic or blastic lesions are appreciated. IMPRESSION: Progressive decrease in the size of the periaortic/retroperitoneal lymphatic infiltration, dating marisela k to 10/08/2022, the time of the original scan. Interval enlargement of the focus of decreased attenuation within the proximal body of the pancreas ( as detailed above). 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
[2023-11-22 14:48] LABS: Estimated Glomerular Filt Rate 58
[2023-11-22 15:37] LABS: Basophils Percent Auto 0.2 % (0.2-1.2); Eosinophils Absolute Auto 0.4 K/mm3 (0-0.3); Eosinophils Percent Auto 8.7 % (0-4.4); Hematocrit 39.2 % (42.0-52.0); Hemoglobin 12.9 g/dL (14.0-18.0); Immature Granulocyte Absolute 0.04 K/mm3 (0.00-0.031); Lymphocytes Percent Auto 29.9 % (18.3-44.2); Mean Corpuscular HGB Conc 32.9 g/dl (32-36); Mean Corpuscular Hemoglobin 31.6 pg (26-34); Mean Corpuscular Volume 96.1 fl (80-100); Mean Platelet Volume 9.4 fl (7.4-10.4); Monocytes Absolute Auto 0.4 K/mm3 (0.1-0.6); Monocytes Percent Auto 9.5 % (2.6-8.5); Neutrophils Percent Auto 50.7 % (45.5-73.1); Platelet Count Result 187 k/mm3 (150-375); Red Blood Count 4.08 M/mm3 (4.6-6.20); Red Cell Distribution Width 13.9 % (11.5-14.5)
[2023-11-22 15:55] LABS: Alanine Aminotransferase 15 U/L (6-50); Albumin Level 4.2 g/dL (3.5-5.1); Anion Gap 8 mmol/L (4-12); Aspartate Amino Transferase 25 U/L (17-59); Blood Urea Nitrogen 16 mg/dL (9-20); Calcium 9.6 mg/dL (8.4-10.2); Carbon Dioxide 28 mmol/L (22-30); Chloride 101 mmol/L (98-107); Cholesterol 210 mg/dL (0-200); Estimated Glomerular Filt Rate 58; Glucose 115 mg/dL (65-110); HDL Direct 37 mg/dL; Potassium 4.6 mmol/L (3.4-5.0); Sodium 137 mmol/L (137-145); Triglycerides 144 mg/dL (<150)
[2023-11-22 16:04] LABS: LDL Cholesterol Direct 131 mg/dL
[2023-11-22 16:06] LABS: Iron 74 ug/dL (49-181)
[2023-11-22 16:16] LABS: Percent Iron Saturation 22 % (20-50)
[2023-11-22 16:59] LABS: Hemoglobin A1C 7.1 % (<5.7)
[2023-11-22 17:17] LABS: Alkaline Phosphatase 86 U/L (38-126)
[2023-11-22 17:32] LABS: Vitamin D 25 Hydroxy 52.3 ng/mL
== END 2023-11-22 14:19 | disposition home or self-care (01) ==
PROVIDERS: Nurse Practitioner Adult Health; PCP Family Medicine; Visit Provider Internal Medicine Hematology & Oncology
DX: C85.93 Non-Hodgkin lymphoma, unspecified, intra-abdominal lymph nodes (principal); E55.9 Vitamin D deficiency, unspecified; E61.1 Iron deficiency; E11.9 Type 2 diabetes mellitus without complications; E87.1 Hypo-osmolality and hyponatremia; N17.9 Acute kidney failure, unspecified; R79.89 Other specified abnormal findings of blood chemistry; Z12.5 Encounter for screening for malignant neoplasm of prostate; Z13.29 Encounter for screening for other suspected endocrine disorder
CPT/HCPCS: 36415; 74177; 80053; 80061; 82306; 83036; 83540; 83550; 84153; 84443; 85025; 85380; 87077; 87086; 87186; G0103; Q9967

== ENCOUNTER 2024-04-25 08:00 | Outpatient (CLI) | payer MEDICARE, SELFPAY ==
--- NOTE | ~2024-04-25 | MR_ITS ---
EXAMINATION: MR MRCP wo/w con/w 3D wo ind DATE: 04/25/2024 12:04 INDICATION: Non-Hodgkin lymphoma, unspecified, unspecified site. TECHNIQUE: Magnetic resonance imaging (MRI) of the abdomen was performed without and with 16 mL Multi Josh intravenous contrast. Sequences included coronal T2-weighted FS FSE, coronal T2-weighted FSE, a xial T1-weighted LAVA, coronal FS FIESTA, axial dual-echo T1-weighted SPGR, coronal lava-FLEX, sagitt al T2-weighted FSE, axial T2-weighted FSE, and axial DWI. Thick-slab T2-weighted FSE images were obta ined for magnetic resonance cholangiopancreatography (MRCP). Maximum intensity projection 3-D reconst ructions of the volumetric data were created by the technologist. Postcontrast sequences included cor onal LAVA-flex and time course of axial T1-weighted LAVA. COMPARISON: CT abdomen and pelvis 11/22/2023, 10/08/22 FINDINGS: ABDOMEN MRI: The liver is normal. There are gallstones in the gallbladder, which is normal in size. T he spleen is normal. There are 9 mm and 19 mm cystic lesions in the pancreas that communicate with th e pancreatic duct, which is mildly dilated to 5 mm. The adrenal glands and right kidney are normal. T here is a 5 mm cyst in left kidney. There are no dilated loops of bowel. A penile prosthesis is noted . The prostate is mildly enlarged. There is fat stranding and soft tissue in the retroperitoneum in t he area of the aortocaval and left para-aortic lymph node chains. There is a 2.8 cm periportal rim-en hancing cystic mass with surrounding fat stranding. 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 ABDOMEN MRCP: The common duct is not dilated and measures 6 mm. IMPRESSION: 1. 2.8 cm rim-enhancing cystic mass with surrounding fat stranding in the periportal region. The diff erential diagnosis includes abscess (such as from peptic ulcer disease or biliary disease), subacute hematoma, and pseudocyst (if there has been pancreatitis since the prior scan). CT abdomen and pelvis with contrast is recommended. 2. Soft tissue and fat stranding again seen in the retroperitoneum, consistent with treated lymphoma. 3. 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 4. Moderate stenosis of right renal artery. 5. Low-risk cystic lesions of the pancreas measuring up to 19 mm, stable from 10/08/22, likely benign. Reviewed, dictated and finalized at location B. IMPRESSION: 1. 2.8 cm rim-enhancing cystic mass with surrounding fat stranding in the perip ortal region. The differential diagnosis includes abscess (such as from peptic ulcer disease or biliary disease), subacute hematoma, and pseudocyst (if there has been pancreatitis since the prior scan). CT abdomen and pelvis with contras t is recommended. 2. Soft tissue and fat stranding again seen in the retroperitoneum, consistent with treated lymphoma. 3. 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 4. Moderate stenosis of right renal artery. 5. Low-risk cystic lesions of the pancreas measuring up to 19 mm, stable from , likely benign.
--- OUTSIDE RECORDS SUMMARY | 2024-04-25 08:07 | XMS_ITS | CONTINUITY OF CARE DOCUMENT ---
Author Name [email or web address] Address Unknown Organization [facility] Address [address] [place] [id number] Phone [phone] Care Team Providers Care Line Helper Name Role Phone Fly [place] MD Unavailable [phone] Fly [place] MD Unavailable [phone] INSURANCE PROVIDERS Payer name Policy type / Coverage type Cora red democrat ID [id number] O O [id number]
--- OUTSIDE RECORDS SUMMARY | 2024-04-25 08:07 | XMS_ITS | Clinical Summary ---
Author Organization [facility] Address [address] [place] [address] Care Team Providers Care Storage Worker Name Role Phone Unavailable Primary Care Provider Unavailabl e Source Comments [facility] [employer],non-owned Affiliates and Associated Physician Practices is amultiple site organization consisting of ambulatory clinics and hospital sitesin [place], [place], [place] and [place]. This disclosure is being madepursuant to the Care Everywhere program and may not contain all information available regarding this patient. Last updated 17.[facility] [employer] Social History Tobacco Use Types Packs/Day Years Used Date Smoking Tobacco: Never Assessed Sex and Gender Information Value Date Recorded Sex Assigned at Not on file Gender Identity Not on file Sexual Orientation Not on file Plan of Treatment Health Maintenance Due Date Last Done Comments DTAP/TDAP/TD VACCINES (1 - Tdap) 1957 PNEUMOCOCCAL VACCINE 50+ (1 of 1 - PCV) 1988 ZOSTER VACCINE (1 of 2) 1988 Respiratory Syncytial Virus (RSV) Vaccine Pt: or over 60 yrs (1 - 1-dose 75+ series) 2013 COVID-19 VACCINE (2023-2 5 season) 2023 INFLUENZA VACCINE (#1) 2023 DEPRESSION SCREENING 02/15/2024 HEPATITIS B VACCINE Aged Out No longe r eligible based on patient's age to complete this topic HIB VACCINE Aged Out No longer eligi ble based on patient's age to complete this topic HPV VACCINE Aged Out No longer eligi ble based on patient's age to complete this topic MENINGOCOCCAL (Group B) VACC INE SHARED DECISION-MAKING Aged Out No longer eligibl e based on patient's age to complete this topic MENINGOCOCCAL GROUPS A/C/Y/W VACCINE Aged Out No longer eligible b ased on patient's age to complete this topic
--- OUTSIDE RECORDS SUMMARY | 2024-04-25 08:07 | XMS_ITS | Encounter Summary ---
Author Organization [facility] Address [address] [place] [address] Care Team Providers Care Medical Office Secretary Name Role Phone Rui Solano MD Primary Care Provider Encounter Details Date Type Department Care Team (Late st Contact Info) Description 04/21/2024 External Device Data [facility] ABSTRACTION Provider, Abstract NO ADDRESS ON FILE Social History Tobacco Use Types Packs/Day Years Used Date Smoking Tobacco: Never Smokeless Tobacco: Never Alcohol Use Standard Drinks/Week Comments Yes 0 (1 standard drink = 0.6 oz pur e alcohol) rare Sex and Gender Information Value Date Recorded Sex Assigned at Not on file Legal Sex Male 10:04 AM CDT Gender Identity Not on file Sexual Orientation Not on file documented as of this encounter Plan of Treatment Not on file documented as of this encounter Visit Diagnoses Not on filedocumented in this encounter Care Teams Medical Office Secretary Relationship Specialty Start Date End Date Rui Solano MD [address] [place] [id number] PCP - General Family Practice 07/29/22 documented as of this encounter
--- OUTSIDE RECORDS SUMMARY | 2024-04-25 08:07 | XMS_ITS | Encounter Summary ---
Author Organization [facility] Address [address] [place] [address] Care Team Providers Care Border Police Name Role Phone Unavailable Primary Care Provider Unavailabl e Encounter Details Date Type Department Care Team (Late st Contact Info) Description 10/28/2022 Lab Requisition [facility] - Pathology Lab [address] [place] [id number] Nba Sheest MD [address] [address] Illness, unspecified Social History Tobacco Use Types Packs/Day Years Used Date Smoking Tobacco: Never Assessed Sex and Gender Information Value Date Recorded Sex Assigned at Not on file Gender Identity Not on file Sexual Orientation Not on file documented as of this encounter Plan of Treatment Not on file documented as of this encounter Procedures Procedure Name Priority Date/Time Associated Diagnosis Comments PATHOLOGY TISSUE Routine 10/26/2022 9:58 AM CDT Illness, unspecified documented in this encounter Results * PATHOLOGY TISSUE (10/26/2022 9:58 AM CDT) Case Report Surgical Pathology Report Case: [id number] Authorizing Provider: Nba Sheets MD Collected: 10/26/2022 09:58 AM Ordering Location: [facility] Care Pathology Lab Received: 10/28/2022 09:56 AM Pathologist: Timo Sanches MD Specimen: Lymph Node Biopsy 10/29/2022 12:13 PM CDT [facility] Final Diagnosis Lymph node, biopsy core: - 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 CD3 highlights background T-cells. No large cell transformation is seen in this small tissue. Axillary lymph node, left, flow cytometry ([id number]): - Too few hematopoietic cells for flow cytometry 10/29/2022 12:[address] [facility] PATHOLOGY LAB Clinical History Lymphadenopathy. 10/29/2022 12:[address] [facility] PATHOLOGY LAB Materials Received Received are 8 slide(s) and 1 block labeled [id number] along with a copy of the outside pathology report. The materials originate from [place] [address]. All original materials are returned to the referring institution, along with a copy of our final report. 10/29/2022 12:[address] [facility] PATHOLOGY LAB Pathologist Location at [facility] 10/29/2022 12:[address] [facility] PATHOLOGY LAB Disclaimer The performance characteristics of all immunohistochemical and indirect immunofluorescence stains (if any) cited in this report were determined by the Histopathology Laboratory of [facility]. Some of these tests were developed by our own laboratory and have not been cleared or approved by the US Food and Drug Administration. The FDA does not require this test to go through premarket FDA review. These tests are used for clinical purposes. They should not be regarded as investigational or for research. This laboratory is certified under the Clinical Laboratory Improvement Amendments (CLIA) as qualified to perform high complexity clinical laboratory testing. This case has been personally reviewed and interpreted by the attending (teaching) pathologist. 10/29/2022 12:[address] [facility] PATHOLOGY LAB Embedded Images 10/29/2022 12:[address] [facility] PATHOLOGY LAB Pathology/Cytolo gy BIOPSY OF LYMPH NODE / Unknown 10/26/2022 9:58 AM CDT 10/28/2022 9:56 AM CDT Nba Sheets MD LAB - PATHOLOGY/CYTO LOGY ORDERABLES [facility] PATHOLOGY LAB [address] [facility]. [address] [phone] documented in this encounter Visit Diagnoses Diagnosis Illness, unspecified documented in this encounter
--- OUTSIDE RECORDS SUMMARY | 2024-04-25 08:07 | XMS_ITS | Encounter Summary ---
Author Organization [facility] Address [address] [facility] [place] [address] Care Team Providers Care Counter Professional Name Role Phone Unavailable Primary Care Provider Unavailabl e Encounter Details Date Type Department Care Team (Late st Contact Info) Description 07/14/2022 Lab Requisition [facility] [place] [facility] - Pathology Lab [address] [place] [phone] Hoang German MD [facility] [address] [address] Localized enlarged lymph nodes Social History Tobacco Use Types Packs/Day Years Used Date Smoking Tobacco: Never Assessed Sex and Gender Information Value Date Recorded Sex Assigned at Not on file Gender Identity Not on file Sexual Orientation Not on file documented as of this encounter Plan of Treatment Not on file documented as of this encounter Procedures Procedure Name Priority Date/Time Associated Diagnosis Comments FLOW CYTOMETRY TISSUE PANEL Routine 07/14/2022 1:50 PM CDT Localized enlarged lymph nodes documented in this encounter Results * FLOW CYTOMETRY TISSUE PANEL (07/14/2022 1:50 PM CDT) Case Report Flow Cytometry Case: [id number] Authorizing Provider: Hoang German MD Collected: 07/14/2022 01:50 PM Ordering Location: [facility] Care Pathology Lab Received: 07/14/2022 05:01 PM Pathologist: Timo Sanches MD Specimen: Lymph Node 07/15/2022 12:32 PM CDT [facility] Final Diagnosis Lymph node, flow cytometry: - Too few hematolymphoid cells for flow cytometry 07/15/2022 12:32 PM CDT [facility] Flow Cytometry Interpretation The cytospin prepared from the flow specimen is reviewed for supplier quality engineer. 07/15/2022 12:32 PM T [facility] PATHOLOGY LAB Flow Cytometry Results Too few hematopoietic cells for flow cytometric analysis. 07/15/2022 12:32 PM CDT [facility] Reason for test Localized enlarged lymph nodes 785.6 07/15/2022 12:32 PM CDT [facility] Client Specimen ID # [id number] 07/15/2022 12:32 PM CDT [facility] Pathologist Location at [facility] 07/15/2022 12:32 PM CDT [facility] LAB Disclaimer Test performed at [facility] [place] [facility], [address] [place], [place], [address]. *The established laboratory minimum viability is 70%. Values below the minimum may result in the failure to find an abnormal population of cells. This test was developed and its performance characteristics determined by the Flow Cytometry Laboratory. It has not been cleared by the [place] Food and Drug Administration (FDA). The FDA has determined that such clearance or approval is not necessary. This test is used for clinical purposes. It should not be regarded as investigational or for research. This laboratory is regulated under the Clinical Laboratory Improvement Amendments of 1998 (CLIA) as a qualified to perform high complexity clinical testing. 07/15/2022 12:32 PM CDT [facility] PATHOLOGY LAB Embedded Images 12:32 PM CDT [facility] PATHOLOGY LAB Pathology/Cytolo gy ENTIRE LYMPH NODE / Unknown 07/14/2022 1:50 PM CDT 07/14/2022 5:01 PM CDT Hoang German MD LAB - PATHOLOGY/CYTO LOGY ORDERABLES [facility] PATHOLOGY LAB [address] [facility] [place] [address], [facility] [phone] documented in this encounter Visit Diagnoses Diagnosis Localized enlarged lymph nodes Enlargement of lymph nodes documented in this encounter
--- OUTSIDE RECORDS SUMMARY | 2024-04-25 08:07 | XMS_ITS | Encounter Summary ---
Author Organization [facility] Address [address] [facility] [place] [address] Care Team Providers Care Injection Molding Operator Name Role Phone Unavailable Primary Care Provider Unavailabl e Encounter Details Date Type Department Care Team (Late st Contact Info) Description 10/26/2022 Lab Requisition [facility] - Pathology Lab [address] [place] [phone] Nba Sheets MD [address] [address] Enlarged lymph nodes, unspecified Social History Tobacco Use Types Packs/Day [...] Diagnosis Comments FLOW CYTOMETRY TISSUE PANEL Routine 10/26/2022 9:58 AM CDT Enlarged lymph nodes, unspecified documented in this encounter Results * FLOW CYTOMETRY TISSUE PANEL (10/26/2022 9:58 AM CDT) Case Report Flow Cytometry Case: [id number] Authorizing Provider: Nba Sheets MD Collected: 10/26/2022 09:58 AM Ordering Location: [facility] Care Pathology Lab Received: 10/26/2022 05:13 PM Pathologist: Timo Sanches MD Specimen: Axillary Lymph Node, LEFT 10/27/2022 11:54 AM CDT [facility] Final Diagnosis Axillary lymph node, left, flow cytometry: - Too few hematopoietic cells for flow cytometry 10/27/2022 11:54 AM CDT [facility] Flow Cytometry Interpretation A cytospin prepared from the flow cytometry specimen has been reviewed for quality control microbiologist purposes. No cells are seen. 10/27/2022 11:54 AM T [facility] PATHOLOGY LAB Flow Cytometry Results Too few hematopoietic cells for flow cytometric analysis. 10/27/2022 11:54 AM CDT [facility] Reason for test Enlarged lymph nodes, unspecified 10/27/2022 11:54 AM T [facility] Client Specimen ID # [id number] 10/27/2022 11:54 AM T [facility] Pathologist Location at [facility] 10/27/2022 11:54 AM T [facility] PATH[facility] LAB Disclaimer Test performed at [facility], [address] [place] [address], [address]. *The established laboratory minimum viability is 70%. [...] qualified to perform high complexity clinical testing. 10/27/2022 11:54 AM T [facility] PATHOLOGY LAB Embedded Images 11:54 AM T [facility] PATHOLOG[facility] LAB Pathology/Cytolo gy AXILLARY LYMPH NODE STRUCTURE / Unknown 10/26/2022 9:58 AM CDT 10/26/2022 5:13 PM CDT Nba Sheets MD LAB - PATHOLOGY/CYTO LOGY ORDERABLES [facility] PATHOLOGY LAB [address] [place] [address]. [place] [address], [facility] [phone] documented in this encounter Visit Diagnoses Diagnosis Enlarged lymph nodes, unspecified documented in this encounter
--- OUTSIDE RECORDS SUMMARY | 2024-04-25 08:07 | XMS_ITS | Clinical Summary ---
Author Organization [facility] g[facility]ier [facility] Address [address] [place] [address] Care Team Providers Care Bridal Stylist Sales Consultant Name Role Phone Rui Solano MD Primary Care Provider Allergies No known active allergies Medications ferrous sulfate 325 mg (65 mg iron) tablet Take 325 mg by mouth daily. Active cholecalciferol, Vitamin D3, 125 mcg (5,000 unit) Capsule Take 5,000 Units by mouth daily. Active aspirin (ANGELY CHEWABLE) 81 mg Tablet, Chewable Take 81 mg by mouth daily. Active docusate sodium (COLACE) 100 mg capsule Take 100 mg by mouth 2 times daily as needed for Constipatio n. Active cyanocobalamin (VITAMIN B-12) 3,000 mcg Tablet, Sublingual Place under tongue. Active nitrofurantoin (MACROBID) 100 mg capsule Take 100 mg by mouth 2 times daily. Active donepeziL (ARICEPT) 5 mg tablet Take 5 mg by mouth daily at bedtime. Active Active Problems No known active problems Encounters Date Type Department Care Team Description 04/21/2024 External Device Data [facility] ABSTRACTION Provider, Abstract 04/20/2024 External Device Data [facility] ABSTRACTION Provider, Abstract 04/04/2024 External Device Data [facility] ABSTRACTION Provider, Abstract 04/02/2024 Telephone [facility] On[facility]ology - [facility] [address] [address] Scott Lu MD labs for appt 03/07/2024 External Device Data [facility] ABSTRACTION Provider, Abstract 03/07/2024 External Device Data [facility] ABSTRACTION Provider, Abstract from Last 3 Months Family History Relation Name Status Comments Brother 1 Brother 2 Father Mother Sister 1 Sister 2 Social History Tobacco Use Types Packs/Day Years Used Date Smoking Tobacco: Never Smokeless Tobacco: Never Tobacco Cessation:Counseling Given: Not Answered Alcohol Use Standard Drinks/Week Comments Yes 0 (1 standard drink = 0.6 oz pur e alcohol) rare Sex and Gender Information Value Date Recorded Sex Assigned at Not on file Legal Sex Male 10:04 AM CDT Gender Identity Not on file Sexual Orientation Not on file Last Filed Vital Signs Vital Sign Reading Time Taken Comments Blood Pressure 109/69 11/28/2023 2:34 PM CDT Pulse 69 11/28/2023 2:34 PM CDT Temperature 36.8 C (98.2 F) 11/28/2023 2:34 PM CDT Respiratory Rate 16 11/28/2023 2:34 PM CDT Oxygen Saturation 96% 11/28/2023 2:34 PM CDT Inhaled Oxygen Concentration - - Weight 83 kg (183 lb) 11/28/2023 2:34 PM CDT Height - - Body Mass Index - - Plan of Treatment Health Maintenance Due Date Last Done Comments DTAP/TDAP/TD VACCINES (1 - Tdap) 1957 PNEUMOCOCCAL VACCINE 50+ YEARS (1 of 1 - PCV) 06/03/18 89 ZOSTER VACCINE (1 of 2) 1988 RSV VACCINE (60+ or ) (1 - 1-dose 75+ series) 2013 INFLUENZA VACCINE (#1) 2023 Medicare Advantage ([place]) Prev entative Visit/Annual Wellness Visit 02/15/2024 Insurance [employer] PLUS O MCR [facility] NextPotential [facility] MCR Advance Directives For more information, please contact: [phone] Documents on File Type Date Recorded Patient Rail Gang Supervisor Expl anation Advance Directive POA 08/27/2022 9:03 AM A dvance Directive POA Care Teams Bridal Stylist Sales Consultant Relationship Specialty Start Date End Date Rui Solano MD [address] [place] [address] PCP - General Family Practice 07/29/22
--- OUTSIDE RECORDS SUMMARY | 2024-04-25 08:07 | XMS_ITS | Referral Summary ---
Author Organization [facility] Address [address] [place] [address] Care Team Providers Care Dairy Nutritionist Name Role Phone Unavailable Primary Care Provider Unavailabl e Source Comments [facility],non-owned Affiliates and Associated Physician Practices is amultiple site organization consisting of ambulatory clinics and hospital sitesin [place], [place], [place] and [place]. This disclosure is being madepursuant to the Care Everywhere program and may not contain all information available regarding this patient. Last updated 17.[facility] Social History Tobacco Use Types Packs/Day Years Used Date Smoking Tobacco: Never Assessed Sex and Gender Information Value Date Recorded Sex Assigned at Not on file Gender Identity Not on file Sexual Orientation Not on file Plan of Treatment Not on file
--- OUTSIDE RECORDS SUMMARY | 2024-04-25 08:07 | XMS_ITS | Patient Health Summary ---
Author Organization [facility] Address [address] [facility] [place] [place] [address] Care Team Providers Care Certified Wellness Program Coordinator Name Role Phone Unavailable Primary Care Provider Unavailabl e Note from [facility],non-owned Affiliates and Associated Physician Practices is amultiple site organization consisting of ambulatory clinics and hospital sitesin [place], [place], [place] and [place]. This disclosure is being madepursuant to the Care Everywhere program and may not contain all information available regarding this patient. Last updated 17.[facility] Social History Tobacco Use Types Packs/Day Years Used Date Smoking Tobacco: Never Assessed Sex and Gender Information Value Date Recorded Sex Assigned at Not on file Gender Identity Not on file Sexual Orientation Not on file Procedures * PATHOLOGY TISSUE(Performed 10/26/2022) Performed for Illness, unspecified * FLOW CYTOMETRY TISSUE PANEL(Performed 10/26/2022) Performed for Enlarged lymph nodes, unspecified * FLOW CYTOMETRY TISSUE PANEL(Performed 07/14/2022) Performed for Localized enlarged lymph nodes Results * PATHOLOGY TISSUE (10/26/2022 9:58 AM CDT) Case Report Surgical Pathology Report Case: [id number] Authorizing Provider: Nba Sheets MD Collected: 10/26/2022 09:58 AM Ordering Location: [facility] Pathology Lab Received: 10/28/2022 09:56 AM Pathologist: Timo Sanches MD Specimen: Lymph Node Biopsy 10/29/2022 12:13 PM CDT [facility] PATH[facility] Final Diagnosis Lymph node, biopsy core: - 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 CD3 highlights background T-cells. No large cell transformation is seen in this small tissue. Axillary lymph node, left, flow cytometry ([id number]): - Too few hematopoietic cells for flow cytometry 10/29/2022 12:13 PM [facility] PATHOLOGY LAB Clinical History Lymphadenopathy. 10/29/2022 12:13 PM T [facility] PATH[facility] Materials Received Received are 8 slide(s) and 1 block labeled [id number] along with a copy of the outside pathology report. The materials originate from [place] [address]. All original materials are returned to the referring institution, along with a copy of our final report. 10/29/2022 12:13 PM [facility] PATH[facility] LAB Pathologist Location at [facility] 10/29/2022 12:13 PM T [facility] PATH[facility] Disclaimer The performance characteristics of all immunohistochemical and indirect immunofluorescence stains (if any) cited in this report were determined by the Histopathology Laboratory of [facility]. Some of these tests were developed by [...] the attending (teaching) pathologist. 10/29/2022 12:13 PM T [facility] PATH[facility] Embedded Images 10/29/2022 12:13 PM T [facility] PATH[facility] Pathology/Cytolo gy BIOPSY OF LYMPH NODE / Unknown 10/26/2022 9:58 AM CDT 10/28/2022 9:56 AM CDT Nba Sheets MD LAB - PATHOLOGY/CYTO LOGY ORDERABLES [facility] PATHOLOG[facility] LAB [address] [facility] [place] [address], [facility] [phone] * FLOW CYTOMETRY TISSUE PANEL (10/26/2022 9:58 AM CDT) Only the most recent of2 resultswithin the time period is included. Case Report Flow Cytometry Case: [id number] Authorizing Provider: Nba Sheets MD Collected: 10/26/2022 09:58 AM Ordering Location: [facility] Pathology Lab Received: 10/26/2022 05:13 PM Pathologist: Timo Sanches MD Specimen: Axillary Lymph Node, LEFT 10/27/2022 11:54 AM CDT [facility] Final Diagnosis Axillary lymph node, left, flow cytometry: - Too few hematopoietic cells for flow cytometry 10/27/2022 11:54 AM CDT [facility] Flow Cytometry Interpretation A cytospin prepared from the flow cytometry specimen has been reviewed for quality lead purposes. No cells are seen. 10/27/2022 11:54 AM CDT [facility] Flow Cytometry Results Too few hematopoietic cells for flow cytometric analysis. 10/27/2022 11:54 AM CDT [facility] Reason for test Enlarged lymph nodes, unspecified 10/27/2022 11:54 AM CDT [facility] Client Specimen ID # [id number] 10/27/2022 11:54 AM CDT [facility] Pathologist Location at [facility] 10/27/2022 11:54 AM CDT [facility] PATH[facility] LAB Disclaimer Test performed at [facility], [address] [place], [place], [address]. *The established laboratory minimum viability is 70%. [...] high complexity clinical testing. 10/27/2022 11:54 AM CDT [facility] PATH[facility] Embedded Images 11:54 AM CDT [facility] Pathology/Cytolo gy AXILLARY LYMPH NODE STRUCTURE / Unknown 10/26/2022 9:58 AM CDT 10/26/2022 5:13 PM CDT Nba Sheets MD LAB - PATHOLOGY/CYTO LOGY ORDERABLES [facility] PATH[facility] LAB [address] [phone]
== END 2024-04-25 08:01 | disposition home or self-care (01) ==
PROVIDERS: PCP Nurse Practitioner Adult Health; Visit Provider Nurse Practitioner Adult Health
DX: R93.5 Abnormal findings on diagnostic imaging of other abdominal regions, including retroperitoneum (principal); K76.89 Other specified diseases of liver; I77.4 Celiac artery compression syndrome; I70.90 Unspecified atherosclerosis; I70.1 Atherosclerosis of renal artery; K86.2 Cyst of pancreas; C85.90 Non-Hodgkin lymphoma, unspecified, unspecified site
CPT/HCPCS: 74183; 76376; A9577